=== PATIENT | male | born 1945 | race Caucasian/White ===

== ENCOUNTER 2016-12-31 14:42 | Inpatient (IN) | payer MEDICARE ==
[~2016-12-31] VITALS: Ht 170.2 cm; Wt 68.6 kg
[2016-12-31 14:43] VITALS: BP 174/90; PULSE 121; RESP 16; TEMP 97.9; O2SAT 98
[2016-12-31] MEDS ORDERED: IOHEXOL 350 MG/ML 10 ML VIAL (for RAD DIAG) IVCONTRAST ONE (14:43)
[2016-12-31] MEDS ORDERED: TAMS0.4C4 PO (15:03)
[2016-12-31] MEDS ORDERED: METF500T PO (15:03)
[2016-12-31 15:04] VITALS: BP 176/88; PULSE 119; RESP 19; TEMP 98.3; O2SAT 98
[2016-12-31] MEDS ORDERED: SODIUM CHLOR 0.9% 1000 ML INJ 1,000 ML IV SCH ×2 (15:08)
[2016-12-31] MEDS ORDERED: VANCOMYCIN INJ 1,000 MG in SODIUM CHLOR 0.9% 250 ML INJ 250 ML IV ONE (15:15)
[2016-12-31] MEDS ORDERED: PIPERACIL-TAZO 3.375 GM PREMIX 50 ML IV ONE (15:15)
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
[2016-12-31 15:27] VITALS: BP 173/89; PULSE 110; RESP 19; TEMP 98.3; O2SAT 98
[2016-12-31 16:06] LABS: AUTOMATED NEUTROPHIL # 29.3 TH/MM3 (1.8-7.7); BASOPHIL % 0.1 % (0.0-2.0); EOSINOPHIL % 0.1 % (0.0-4.0); LYMPH % 3.6 % (9.0-44.0); LYMPHOCYTE # 1.1 TH/MM3 (1.0-4.8); MEAN CELL VOLUME 94.8 FL (80.0-100.0); MEAN CORPUSCULAR HEMOGLOBIN 32.8 PG (27.0-34.0); MEAN CORPUSCULAR HGB CONC 34.6 % (32.0-36.0); MONO % 5.1 % (0.0-8.0); NEUT % 91.1 % (16.0-70.0); PLATELET COUNT 441 TH/MM3 (150-450); RED BLOOD COUNT 4.75 MIL/MM3 (4.50-5.90); RED CELL DISTRIBUTION WIDTH 12.7 % (11.6-17.2); WHITE BLOOD COUNT 32.2 TH/MM3 (4.0-11.0)
[2016-12-31 16:06] LABS: BLOOD, URINE NEG (NEG); GLUCOSE,URINE 1000 mg/dL (NEG); KETONE, URINE 80 mg/dL (NEG); NITRITE,URINE NEG (NEG); PH, URINE 5.5 (5.0-8.5); URINE COLOR YELLOW (YELLW/STRAW)
--- NOTE | 2016-12-31 16:14 | RADRPT ---
EXAM DATE/TIME: 12/31/2016 15:40 [facility] COMPARISON: No previous studies available for comparison. INDICATIONS : Cough, increased weakness. MEDICAL HISTORY : Diabetes mellitus type II. SURGICAL HISTORY : None. ENCOUNTER: Initial ACUITY: 2 months PAIN SCORE: 0/10 LOCATION: Bilateral chest FINDINGS: A single view of the chest demonstrates the lungs to be symmetrically aerated without evidence of mas s, infiltrate or effusion. The cardiomediastinal contours are unremarkable. Osseous structures are intact. CONCLUSION: 1. No acute cardiopulmonary findings. Pepe Ochoa MD on December 31, 2016 at 16:12 Board Certified Radiologist. This report was verified electronically.
[2016-12-31 16:15] LABS: COMMENT (UR) CATH-CULTURE IND; CULTURE IF INDICATED CATH CULTURE IND
[2016-12-31 16:18] LABS: HEMO FLAGS AUTO DIFF
[2016-12-31 17:05] LABS: ANION GAP 13 MEQ/L (5-15)
[2016-12-31 17:12] LABS: ALKALINE PHOSPHATASE 171 U/L (45-117); ALT (GPT) 35 U/L (12-78); AST (GOT) 21 U/L (15-37); BETA-HYDROXYBUTYRATE 2.81 MMOL/L (0.00-0.39); BLOOD UREA NITROGEN 17 MG/DL (7-18); CHLORIDE 95 MEQ/L (98-107); CREATINE KINASE 56 U/L (39-308); GLOMERULAR FILTRATION RATE 77 ML/MIN (>89); MAGNESIUM 2.4 MG/DL (1.5-2.5); POTASSIUM 3.4 MEQ/L (3.5-5.1); SODIUM (NA) 131 MEQ/L (136-145); TOTAL BILIRUBIN ADULT 0.7 MG/DL (0.2-1.0)
[2016-12-31] MEDS ORDERED: INSULIN HUMAN REGULAR 1,000 UNITS/10 ML VIAL IV PUSH ONE (17:45)
[2016-12-31] MEDS ORDERED: POTASSIUM CHLORIDE 20 MEQ CONTROLLED RELEASE TAB PO ONE (17:45)
[2016-12-31 17:53] LABS: BANDS 13 % (0-6); MYELOCYTES 2 % (0-0); NEUTROPHIL # MANUAL DIFF 28.7 TH/MM3 (1.8-7.7); PLATELET ESTIMATE SMEAR NORMAL (NORMAL); POLYS (SEG NEUTROPHILS) 74 % (16-70); SCAN/DIFF FINAL DIFF MANUAL; WBC DIFF SAMPLE 100
[2016-12-31] MEDS: METFORMIN HOLD POST IV CONTRAST SCH (17:55)
[2016-12-31 18:08] LABS: PLATELET MORPHOLOGY NORMAL (NORMAL)
--- NOTE | 2016-12-31 18:21 | RADRPT ---
EXAM DATE/TIME: 12/31/2016 17:58 [facility] COMPARISON: No previous studies available for comparison. INDICATIONS : Posterior draining abscess on neck. IV CONTRAST: 72 cc Omnipaque 350 (iohexol) IV RADIATION DOSE: 12.84 CTDIvol (mGy) MEDICAL HISTORY : Diabetes mellitus type 2. SURGICAL HISTORY : None. ENCOUNTER: Initial ACUITY: 1 week PAIN SCALE: 7/10 LOCATION: posterior left side neck region. TECHNIQUE: Volumetric scanning of the neck was performed. Using automated exposure control and adjustment of th e mA and/or kV according to patient size, radiation dose was kept as low as reasonably achievable to obtain optimal diagnostic quality images. DICOM format image data is available electronically for r eview and comparison. FINDINGS: Area of skin, subcutaneous and muscular edema seen of the posterior neck and occiput. This is a broad region of involvement but the epicenter appears to be left of midline at the craniocervical junction region. Multiple areas of blistering of the overlying scanner demonstrated. There is no distinct, me asurable or drainable fluid collection. Visualized osseous structures are intact. The visualized lung apices are clear. CONCLUSION: Broad area of cellulitis of the occiput and posterior neck without a perceptible abscess. Deny Kendall MD on December 31, 2016 at 18:16 Board Certified Radiologist. This report was verified electronically.
[2016-12-31 18:59] VITALS: BP 160/92; PULSE 109; RESP 17; O2SAT 98
[2016-12-31] MEDS ORDERED: ACETAMINOPHEN/HYDROcodone 325 MG/5 MG TAB PO PRN (19:15)
[2016-12-31] MEDS ORDERED: SODIUM CHLORIDE 0.9% FLUSH 10 ML FLUSH IV FLUSH PRN (19:15)
[2016-12-31] MEDS ORDERED: DEXTROSE 50% IN WATER 50 ML VIAL(D50) IV PRN (19:15)
[2016-12-31] MEDS ORDERED: ACETAMINOPHEN 325 MG TAB PO PRN (19:15)
[2016-12-31] MEDS ORDERED: GLUCAGON 1 MG/ML VIAL OTHER PRN (19:15)
[2016-12-31] MEDS ORDERED: NALOXONE HCL 0.4 MG/ML AMP IV PUSH PRN (19:15)
[2016-12-31] MEDS ORDERED: Vancomycin Consult Pharmacy 1 EA OTHER SCH (19:15)
[2016-12-31] MEDS ORDERED: ONDANSETRON HCL 4 MG/2 ML VIAL IVP PRN (19:15)
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
[2016-12-31 19:55] VITALS: BP 160/80; PULSE 108; RESP 16; O2SAT 98
[2016-12-31] MEDS: SODIUM CHLOR 0.9% 1000 ML INJ 1,000 ML IV SCH (20:11)
[2016-12-31] MEDS: VANCOMYCIN 1,000 MG/NS 250 ML IV SCH ×4 (20:11→21:32)
[2016-12-31] MEDS: SODIUM CHLORIDE 0.9% FLUSH 10 ML FLUSH IV FLUSH SCH (20:12)
[2016-12-31] MEDS: ENOXAPARIN SODIUM 40 MG/0.4 ML SYRINGE SQ SCH (20:12)
--- NOTE | 2016-12-31 20:56 | EKG ---
Date Performed: 12/31/2016 Time Performed: 15:12:15 PTAGE: 71 years EKG: SINUS TACHYCARDIA ABNORMAL RHYTHM ECG NO PREVIOUS TRACING DOCTOR: Cyrus Weaver Interpretating Date/Time 12/31/2016 20:54:37
[2016-12-31] MEDS ORDERED: KETOROLAC TROMETHAMINE 30 MG/ML (IVP) VIAL IV PUSH PRN (21:30)
[2016-12-31] MEDS: TAMSULOSIN HCL 0.4 MG CAP PO SCH (21:31)
[2016-12-31] MEDS: INSULIN ASPART SUPPLEMENTAL SCALE SQ SCH (21:31)
[2016-12-31] MEDS: DOCUSATE SODIUM 50 MG/SENNA 8.6 MG TAB PO SCH (21:32)
[2016-12-31 21:45] VITALS: BP 160/82; PULSE 104; RESP 17; TEMP 101; O2SAT 98
[2016-12-31] MEDS: ACETAMINOPHEN/HYDROcodone 325 MG/10 MG TAB PO PRN (21:49)
[2016-12-31] MEDS: PIPERACIL-TAZO 3.375 GM PREMIX 50 ML IV SCH (23:43)
[2017-01-01] VITALS: BP 128/65; PULSE 93; RESP 18; TEMP 98.2; O2SAT 92
[2017-01-01] MEDS ORDERED: VANCOMYCIN INJ 1,000 MG in SODIUM CHLOR 0.9% 250 ML INJ 250 ML IV SCH (03:00)
[2017-01-01 04:00] VITALS: BP 144/70; PULSE 88; RESP 18; TEMP 97; O2SAT 97
[2017-01-01] MEDS: PIPERACIL-TAZO 3.375 GM PREMIX 50 ML IV SCH ×3 (06:20→23:39)
[2017-01-01] MEDS: SODIUM CHLOR 0.9% 1000 ML INJ 1,000 ML IV SCH ×2 (06:20→15:02)
[2017-01-01] MEDS: INSULIN ASPART SUPPLEMENTAL SCALE SQ SCH ×4 (08:00→21:56)
[2017-01-01 08:03] VITALS: BP 161/76; PULSE 91; RESP 18; TEMP 98.3; O2SAT 99
[2017-01-01] MEDS: SODIUM CHLORIDE 0.9% FLUSH 10 ML FLUSH IV FLUSH SCH ×2 (10:47→21:56)
[2017-01-01] MEDS: DOCUSATE SODIUM 50 MG/SENNA 8.6 MG TAB PO SCH ×2 (10:47→21:56)
[2017-01-01] MEDS: LACTOBACILLUS ACIDOPHILUS TAB PO SCH ×3 (10:47→17:19)
--- NOTE | 2017-01-01 10:51 | HHI.PR ---
Subjective Remarks Patient reports feeling better. Posterior neck is slightly improved today. Last fever was at 9:45 PM last night. Sepsis criteria are no longer present. Objective Vital Signs Date Time Temp Pulse Resp B/P (MAP) Pulse Ox O2 Delivery O2 Flow Rate FiO2 01/01/17 08:03 98.3 91 18 161/76 (104) 99 01/01/17 04:00 97.0 88 18 144/70 (94) 97 01/01/17 00:00 98.2 93 18 128/65 (86) 92 12/31/16 22:49 18 12/31/16 22:49 18 12/31/16 21:45 101.0 104 17 160/82 (108) 98 12/31/16 20:12 12/31/16 19:55 108 16 160/80 (106) 98 Room Air 12/31/16 18:59 109 17 160/92 (114) 98 Room Air 12/31/16 15:27 98.3 110 19 173/89 (117) 98 Room Air 12/31/16 15:27 98 Room Air 12/31/16 15:04 119 19 98 Room Air 12/31/16 15:04 98.3 119 19 176/88 (117) 98 Room Air 12/31/16 14:43 97.9 121 16 174/90 (118) 98 Room Air I/O 12/31/16 12/31/16 12/31/16 01/01/17 01/01/17 01/01/17 07:00 15:00 23:00 07:00 15:00 23:00 Intake Total 2950 ml 2584 ml Output Total 150 ml Balance 2800 ml 2584 ml Intake Oral 600 ml IV Total 2350 ml 2584 ml Output Urine Total 150 ml # Voids 6 # Bowel Movements 0 Result Diagram: 12/31/16 1515 12/31/16 1515 Objective Remarks GENERAL: NAD, A&Ox3 HEAD: Normocephalic. NECK: Supple, trachea midline. No lymphadenopathy. EYES: No scleral icterus. No injection or drainage. CARDIOVASCULAR: Regular rate and rhythm without murmurs, gallops, or rubs. RESPIRATORY: Breath sounds equal bilaterally. No accessory muscle use. GASTROINTESTINAL: Abdomen soft, non-tender, nondistended. MUSCULOSKELETAL: No cyanosis, or edema. SKIN: Warm and dry. Improving area of furuncles and carbuncles and cellulitis at posterior scalp from occipital is down to mid neck. NEURO: No focal neurological deficitis. A/P Problem List: (1) Failure to thrive in adult ICD Code: R62.7 - Adult failure to thrive Status: Acute (2) Sepsis ICD Code: A41.9 - Sepsis, unspecified organism Status: Acute (3) Hyperglycemia ICD Code: R73.9 - Hyperglycemia, unspecified Status: Acute (4) Cellulitis ICD Code: L03.90 - Cellulitis, unspecified Status: Acute (5) Urinary tract infection ICD Code: N39.0 - Urinary tract infection, site not specified Status: Acute Assessment and Plan Assessment and plan 71-year-old male admitted with sepsis secondary to cellulitis and UTI Sepsis Resolved Cellulitis Screen for abscess with CT shows no evidence of abscess Monitor for furuncles and carbuncles Vancomycin Probiotics Urinary tract infection Follow urine cultures Zosyn Diabetes mellitus type 2 Uncontrolled, but improving Follow blood sugars Insulin sliding scale Diabetic diet Benign prostatic hypertrophy Continue tamsulosin DVT prophylaxis Lovenox SCDs Problem Qualifiers (1) Sepsis: Qualified Codes: A41.9 - Sepsis, unspecified organism (2) Cellulitis: Qualified Codes: L03.221 - Cellulitis of neck (3) Urinary tract infection: Qualified Codes: N30.00 - Acute cystitis without hematuria Pepe Deleon MD Jan 01, 2017 10:51
[2017-01-01 11:27] LABS: BASOPHIL % 0.1 % (0.0-2.0); EOSINOPHIL # 0.1 TH/MM3 (0-0.4); EOSINOPHIL % 0.3 % (0.0-4.0); HEMATOCRIT 39.9 % (39.0-51.0); LYMPH % 2.8 % (9.0-44.0); LYMPHOCYTE # 0.8 TH/MM3 (1.0-4.8); MEAN CELL VOLUME 94.9 FL (80.0-100.0); MEAN CORPUSCULAR HEMOGLOBIN 32.6 PG (27.0-34.0); MEAN CORPUSCULAR HGB CONC 34.4 % (32.0-36.0); MONO % 4.8 % (0.0-8.0); PLATELET COUNT 395 TH/MM3 (150-450); RED BLOOD COUNT 4.21 MIL/MM3 (4.50-5.90); RED CELL DISTRIBUTION WIDTH 12.8 % (11.6-17.2); WHITE BLOOD COUNT 28.2 TH/MM3 (4.0-11.0)
[2017-01-01 11:37] LABS: HEMO FLAGS AUTO DIFF
[2017-01-01 12:05] LABS: ALKALINE PHOSPHATASE 113 U/L (45-117); ALT (GPT) 22 U/L (12-78); ANION GAP 11 MEQ/L (5-15); AST (GOT) 11 U/L (15-37); BICARBONATE 21.9 MEQ/L (21.0-32.0); BLOOD UREA NITROGEN 13 MG/DL (7-18); CHLORIDE 102 MEQ/L (98-107); GLOMERULAR FILTRATION RATE 106 ML/MIN (>89); POTASSIUM 3.6 MEQ/L (3.5-5.1); SODIUM (NA) 135 MEQ/L (136-145); TOTAL BILIRUBIN ADULT 0.6 MG/DL (0.2-1.0)
[2017-01-01 12:24] LABS: BANDS 22 % (0-6); MYELOCYTES 2 % (0-0); NEUTROPHIL # MANUAL DIFF 25.7 TH/MM3 (1.8-7.7); PLATELET ESTIMATE SMEAR NORMAL (NORMAL); PLATELET MORPHOLOGY NORMAL (NORMAL); POLYS (SEG NEUTROPHILS) 67 % (16-70); SCAN/DIFF FINAL DIFF MANUAL; WBC DIFF SAMPLE 100
[2017-01-01 12:25] LABS: BURR CELLS 1+ (NORMAL)
[2017-01-01 12:26] LABS: ACANTHOCYTES OCC (NORMAL)
[2017-01-01 12:38] VITALS: BP 161/76; PULSE 94; RESP 17; TEMP 98.1; O2SAT 99
[2017-01-01 16:00] VITALS: BP 124/77; PULSE 100; RESP 19; TEMP 98.3; O2SAT 99
[2017-01-01] MEDS: METFORMIN HOLD POST IV CONTRAST SCH (17:19)
[2017-01-01 20:00] VITALS: BP 152/70; PULSE 98; RESP 20; TEMP 98.5; O2SAT 98
[2017-01-01] MEDS: VANCOMYCIN 1,000 MG/NS 250 ML IV SCH ×2 (21:55)
[2017-01-01] MEDS: ENOXAPARIN SODIUM 40 MG/0.4 ML SYRINGE SQ SCH (21:55)
[2017-01-01] MEDS: TAMSULOSIN HCL 0.4 MG CAP PO SCH (21:56)
[2017-01-01] MEDS: ACETAMINOPHEN/HYDROcodone 325 MG/10 MG TAB PO PRN (21:57)
[2017-01-02] VITALS (10 sets, daily range): BP systolic 129–172; BP diastolic 63–93; PULSE 86–106; RESP 18–20; TEMP 97.7–99.3; O2SAT 95–97
[2017-01-02] MEDS: SODIUM CHLOR 0.9% 1000 ML INJ 1,000 ML IV SCH ×3 (01:31→21:02)
[2017-01-02] MEDS: ACETAMINOPHEN/HYDROcodone 325 MG/10 MG TAB PO PRN (06:00)
[2017-01-02] MEDS: PIPERACIL-TAZO 3.375 GM PREMIX 50 ML IV SCH ×3 (06:00→22:47)
[2017-01-02] MEDS ORDERED: PHARMACY ORDERED LAB ONE (07:45)
[2017-01-02] MEDS: VANCOMYCIN 1,000 MG/NS 250 ML IV SCH ×2 (07:58)
[2017-01-02] MEDS: DOCUSATE SODIUM 50 MG/SENNA 8.6 MG TAB PO SCH ×2 (08:00→20:13)
[2017-01-02] MEDS: LACTOBACILLUS ACIDOPHILUS TAB PO SCH ×3 (08:00→18:08)
[2017-01-02] MEDS: INSULIN ASPART SUPPLEMENTAL SCALE SQ SCH ×4 (08:00→20:26)
[2017-01-02] MEDS: SODIUM CHLORIDE 0.9% FLUSH 10 ML FLUSH IV FLUSH SCH ×2 (08:00→20:13)
--- NOTE | 2017-01-02 11:24 | HHI.PR ---
Subjective Remarks Labs pending for today. Patient reports that he is feeling better. Nurse reports that he is not eating well. No fevers. Objective Vital Signs Date Time Temp Pulse Resp B/P (MAP) Pulse Ox O2 Delivery O2 Flow Rate FiO2 01/02/17 08:10 98.7 86 18 136/66 (89) 97 01/02/17 08:00 89 01/02/17 04:00 98.1 86 20 138/93 (108) 96 01/02/17 02:06 106 01/02/17 00:00 99.3 97 20 136/63 (87) 95 01/01/17 22:57 18 01/01/17 20:00 98.5 98 20 152/70 (97) 98 01/01/17 16:00 98.3 100 19 124/77 (93) 99 01/01/17 12:38 98.1 94 17 161/76 (104) 99 I/O 01/01/17 01/01/17 01/01/17 01/02/17 01/02/17 01/02/17 06:59 14:59 22:59 06:59 14:59 22:59 Intake Total 2584 ml 480 ml 240 ml 1420 ml Output Total 100 ml Balance 2584 ml 480 ml 240 ml 1320 ml Intake Oral 480 ml 240 ml 120 ml IV Total 2584 ml 1300 ml Output Urine Total 100 ml # Voids 6 5 1 2 Result Diagram: 01/01/17 1018 01/01/17 1018 Objective Remarks GENERAL: NAD, A&Ox3 HEAD: Normocephalic. NECK: Supple, trachea midline. No lymphadenopathy. EYES: No scleral icterus. No injection or drainage. CARDIOVASCULAR: Regular rate and rhythm without murmurs, gallops, or rubs. RESPIRATORY: Breath sounds equal bilaterally. No accessory muscle use. GASTROINTESTINAL: Abdomen soft, non-tender, nondistended. MUSCULOSKELETAL: No cyanosis, or edema. SKIN: Warm and dry. Improving area of furuncles and carbuncles and cellulitis at posterior scalp from occipital is down to mid neck. NEURO: No focal neurological deficitis. A/P Problem List: (1) Failure to thrive in adult ICD Code: R62.7 - Adult failure to thrive Status: Acute (2) Sepsis ICD Code: A41.9 - Sepsis, unspecified organism Status: Acute (3) Hyperglycemia ICD Code: R73.9 - Hyperglycemia, unspecified Status: Acute (4) Cellulitis ICD Code: L03.90 - Cellulitis, unspecified Status: Acute (5) Urinary tract infection ICD Code: N39.0 - Urinary tract infection, site not specified Status: Acute Assessment and Plan Assessment and plan 71-year-old male admitted with sepsis secondary to cellulitis and UTI. Possible bacteremia based on cultures. If bacteremia becomes more evident we' ll consult infectious disease physician. Continue present treatments for now. Follow CBC and BMP. Labs reviewed. Labs ordered. Sepsis Resolved Cellulitis Screen for abscess with CT shows no evidence of abscess Monitor for furuncles and carbuncles Vancomycin Probiotics Urinary tract infection Follow urine cultures Zosyn Diabetes mellitus type 2 Uncontrolled, but improving Follow blood sugars Insulin sliding scale Diabetic diet Benign prostatic hypertrophy Continue tamsulosin DVT prophylaxis Lovenox SCDs Problem Qualifiers (1) Sepsis: Qualified Codes: A41.9 - Sepsis, unspecified organism (2) Cellulitis: Qualified Codes: L03.221 - Cellulitis of neck (3) Urinary tract infection: Qualified Codes: N30.00 - Acute cystitis without hematuria Pepe Deleon MD Jan 02, 2017 11:24
[2017-01-02] MEDS: TAMSULOSIN HCL 0.4 MG CAP PO SCH (20:13)
[2017-01-02] MEDS: ENOXAPARIN SODIUM 40 MG/0.4 ML SYRINGE SQ SCH (20:13)
[2017-01-02] MEDS: VANCOMYCIN INJ 1,250 MG in SODIUM CHLOR 0.9% 250 ML INJ 250 ML IV SCH (20:26)
[2017-01-03 04:35] VITALS: BP 130/60; PULSE 87; RESP 16; TEMP 99; O2SAT 95
[2017-01-03] MEDS: PIPERACIL-TAZO 3.375 GM PREMIX 50 ML IV SCH (06:20)
[2017-01-03] MEDS: SODIUM CHLOR 0.9% 1000 ML INJ 1,000 ML IV SCH ×2 (06:20→17:34)
[2017-01-03 08:00] VITALS: BP 149/70; PULSE 83; RESP 20; TEMP 97.8; O2SAT 96
[2017-01-03 08:19] LABS: HEMATOCRIT 36.4 % (39.0-51.0); MEAN CELL VOLUME 93.7 FL (80.0-100.0); MEAN CORPUSCULAR HEMOGLOBIN 32.4 PG (27.0-34.0); MEAN CORPUSCULAR HGB CONC 34.6 % (32.0-36.0); PLATELET COUNT 396 TH/MM3 (150-450); RED BLOOD COUNT 3.88 MIL/MM3 (4.50-5.90); RED CELL DISTRIBUTION WIDTH 12.6 % (11.6-17.2); WHITE BLOOD COUNT 19.2 TH/MM3 (4.0-11.0)
[2017-01-03 08:22] LABS: HEMO FLAGS AUTO DIFF
[2017-01-03] MEDS: DOCUSATE SODIUM 50 MG/SENNA 8.6 MG TAB PO SCH ×2 (08:29→20:40)
[2017-01-03] MEDS: LACTOBACILLUS ACIDOPHILUS TAB PO SCH ×3 (08:29→17:26)
[2017-01-03] MEDS: VANCOMYCIN INJ 1,250 MG in SODIUM CHLOR 0.9% 250 ML INJ 250 ML IV SCH (08:29)
[2017-01-03] MEDS: INSULIN ASPART SUPPLEMENTAL SCALE SQ SCH ×4 (08:41→20:40)
[2017-01-03] MEDS: SODIUM CHLORIDE 0.9% FLUSH 10 ML FLUSH IV FLUSH SCH ×2 (08:42→20:40)
[2017-01-03 08:48] LABS: ALKALINE PHOSPHATASE 79 U/L (45-117); ALT (GPT) 13 U/L (12-78); ANION GAP 9 MEQ/L (5-15); AST (GOT) 9 U/L (15-37); BICARBONATE 23.6 MEQ/L (21.0-32.0); BLOOD UREA NITROGEN 8 MG/DL (7-18); CHLORIDE 104 MEQ/L (98-107); GLOMERULAR FILTRATION RATE 172 ML/MIN (>89); SODIUM (NA) 137 MEQ/L (136-145); TOTAL BILIRUBIN ADULT 0.6 MG/DL (0.2-1.0)
[2017-01-03 08:52] LABS: BANDS 15 % (0-6); MYELOCYTES 3 % (0-0); NEUTROPHIL # MANUAL DIFF 16.3 TH/MM3 (1.8-7.7); POLYS (SEG NEUTROPHILS) 67 % (16-70); WBC DIFF SAMPLE 100
[2017-01-03 08:53] LABS: ACANTHOCYTES 1+ (NORMAL); PLATELET ESTIMATE SMEAR NORMAL (NORMAL); PLATELET MORPHOLOGY NORMAL (NORMAL); SCAN/DIFF FINAL DIFF MANUAL
[2017-01-03 08:54] LABS: OVALOCYTES 1+ (NORMAL)
[2017-01-03 10:00] VITALS: PULSE 92
[2017-01-03 12:00] VITALS: BP 159/87; PULSE 88; RESP 20; TEMP 97.2; O2SAT 96
--- NOTE | 2017-01-03 12:17 | HHI.PR ---
Subjective Remarks Continued improvement in wound. Culture showed more evidence of positivity regarding bacteremia. No new complaints from the patient. Objective Vital Signs Date Time Temp Pulse Resp B/P (MAP) Pulse Ox O2 Delivery O2 Flow Rate FiO2 01/03/17 12:00 97.2 88 20 159/87 (111) 96 01/03/17 08:00 97.8 83 20 149/70 (96) 96 01/03/17 04:35 99.0 87 16 130/60 (83) 95 01/02/17 23:43 99.2 90 18 129/75 (93) 96 01/02/17 20:32 86 01/02/17 20:14 97.9 104 18 172/88 (116) 96 01/02/17 16:00 98.2 99 20 171/90 (117) 96 01/02/17 12:52 97.7 94 18 149/81 (103) 97 I/O 01/02/17 01/02/17 01/02/17 01/03/17 01/03/17 01/03/17 07:00 15:00 23:00 07:00 15:00 23:00 Intake Total 1420 ml 730 ml Output Total 100 ml Balance 1320 ml 730 ml Intake Oral 120 ml 480 ml IV Total 1300 ml 250 ml Output Urine Total 100 ml # Voids 2 9 1 Result Diagram: 01/03/1771601/03/17 07 Objective Remarks GENERAL: NAD, A&Ox3 HEAD: Normocephalic. NECK: Supple, trachea midline. No lymphadenopathy. EYES: No scleral icterus. No injection or drainage. CARDIOVASCULAR: Regular rate and rhythm without murmurs, gallops, or rubs. RESPIRATORY: Breath sounds equal bilaterally. No accessory muscle use. GASTROINTESTINAL: Abdomen soft, non-tender, nondistended. MUSCULOSKELETAL: No cyanosis, or edema. SKIN: Warm and dry. Improving area of furuncles and carbuncles and cellulitis at posterior scalp from occipital is down to mid neck. NEURO: No focal neurological deficitis. A/P Problem List: (1) Failure to thrive in adult ICD Code: R62.7 - Adult failure to thrive Status: Acute (2) Sepsis ICD Code: A41.9 - Sepsis, unspecified organism Status: Acute (3) Hyperglycemia ICD Code: R73.9 - Hyperglycemia, unspecified Status: Acute (4) Cellulitis ICD Code: L03.90 - Cellulitis, unspecified Status: Acute (5) Urinary tract infection ICD Code: N39.0 - Urinary tract infection, site not specified Status: Acute Assessment and Plan Assessment and plan 71-year-old male admitted with sepsis secondary to cellulitis and UTI. Further evidence of bacteremia. Continue present treatment. Consult infectious disease. The wound is improving with antibiotics through time. Sepsis Resolved Cellulitis Screen for abscess with CT shows no evidence of abscess Monitor for furuncles and carbuncles Vancomycin Probiotics Urinary tract infection Follow urine cultures Zosyn Diabetes mellitus type 2 Uncontrolled, but improving Follow blood sugars Insulin sliding scale Diabetic diet Benign prostatic hypertrophy Continue tamsulosin DVT prophylaxis Lovenox SCDs Problem Qualifiers (1) Sepsis: Qualified Codes: A41.9 - Sepsis, unspecified organism (2) Cellulitis: Qualified Codes: L03.221 - Cellulitis of neck (3) Urinary tract infection: Qualified Codes: N30.00 - Acute cystitis without hematuria Pepe Deleon MD Jan 03, 2017 12:17
[2017-01-03] MEDS: ceFAZolin 2 GM PREMIX 50 ML IV SCH ×2 (15:36→23:58)
[2017-01-03 16:00] VITALS: BP 152/78; PULSE 81; RESP 20; TEMP 98.2; O2SAT 97
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
[2017-01-03 20:00] VITALS: BP 153/75; PULSE 88; RESP 18; TEMP 98.2; O2SAT 94
[2017-01-03] MEDS: TAMSULOSIN HCL 0.4 MG CAP PO SCH (20:40)
[2017-01-03] MEDS: ENOXAPARIN SODIUM 40 MG/0.4 ML SYRINGE SQ SCH (20:40)
[2017-01-04] VITALS: BP 147/74; PULSE 82; RESP 18; TEMP 98; O2SAT 95
[2017-01-04 04:00] VITALS: BP 155/75; PULSE 89; RESP 18; TEMP 98.9; O2SAT 94
[2017-01-04] MEDS: SODIUM CHLOR 0.9% 1000 ML INJ 1,000 ML IV SCH ×3 (04:22→23:02)
[2017-01-04] MEDS: ceFAZolin 2 GM PREMIX 50 ML IV SCH ×3 (06:40→22:15)
[2017-01-04] MEDS ORDERED: PHARMACY ORDERED LAB ONE (07:45)
[2017-01-04 08:00] VITALS: BP 153/72; PULSE 85; RESP 20; TEMP 98.3; O2SAT 96
[2017-01-04] MEDS: LACTOBACILLUS ACIDOPHILUS TAB PO SCH ×3 (08:04→18:25)
[2017-01-04] MEDS: DOCUSATE SODIUM 50 MG/SENNA 8.6 MG TAB PO SCH ×2 (08:05→22:15)
[2017-01-04] MEDS: INSULIN ASPART SUPPLEMENTAL SCALE SQ SCH ×4 (08:11→22:16)
[2017-01-04] MEDS: SODIUM CHLORIDE 0.9% FLUSH 10 ML FLUSH IV FLUSH SCH ×2 (08:13→21:00)
--- NOTE | 2017-01-04 11:13 | HHI.PR ---
Subjective Remarks Slow improvement continues at posterior scalp infection. Vancomycin and Zosyn and transitioned to cefazolin. Patient has no new complaints. Objective Vital Signs Date Time Temp Pulse Resp B/P (MAP) Pulse Ox O2 Delivery O2 Flow Rate FiO2 01/04/17 08:00 98.3 85 20 153/72 (99) 96 01/04/17 04:00 98.9 89 18 155/75 (101) 94 01/04/17 00:00 98.0 82 18 147/74 (98) 95 01/03/17 20:00 98.2 88 18 153/75 (101) 94 01/03/17 16:00 98.2 81 20 152/78 (102) 97 01/03/17 12:00 97.2 88 20 159/87 (111) 96 I/O 01/03/17 01/03/17 01/03/17 01/04/17 01/04/17 01/04/17 07:00 15:00 23:00 07:00 15:00 23:00 Intake Total 780 ml Balance 780 ml Intake Oral 480 ml IV Total 300 ml # Voids 1 3 2 # Bowel Movements 1 Result Diagram: 01/03/1771601/03/1717 Objective Remarks GENERAL: NAD, A&Ox3 HEAD: Normocephalic. NECK: Supple, trachea midline. No lymphadenopathy. EYES: No scleral icterus. No injection or drainage. CARDIOVASCULAR: Regular rate and rhythm without murmurs, gallops, or rubs. RESPIRATORY: Breath sounds equal bilaterally. No accessory muscle use. GASTROINTESTINAL: Abdomen soft, non-tender, nondistended. MUSCULOSKELETAL: No cyanosis, or edema. SKIN: Warm and dry. Improving area of furuncles and carbuncles and cellulitis at posterior scalp from occipital is down to mid neck. NEURO: No focal neurological deficitis. A/P Problem List: (1) Failure to thrive in adult ICD Code: R62.7 - Adult failure to thrive Status: Acute (2) Sepsis ICD Code: A41.9 - Sepsis, unspecified organism Status: Acute (3) Hyperglycemia ICD Code: R73.9 - Hyperglycemia, unspecified Status: Acute (4) Cellulitis ICD Code: L03.90 - Cellulitis, unspecified Status: Acute (5) Urinary tract infection ICD Code: N39.0 - Urinary tract infection, site not specified Status: Acute Assessment and Plan Assessment and plan 71-year-old male admitted with sepsis secondary to cellulitis and UTI. Further evidence of bacteremia. Continue present treatment. Consult infectious disease. The wound is improving with antibiotics through time. Sepsis Resolved Cellulitis Screen for abscess with CT shows no evidence of abscess Monitor for furuncles and carbuncles Vancomycin stopped Continue cefazolin Probiotics Urinary tract infection Follow urine cultures Zosyn stopped Continue cefazolin Diabetes mellitus type 2 Uncontrolled, but improving Follow blood sugars Insulin sliding scale Diabetic diet Benign prostatic hypertrophy Continue tamsulosin DVT prophylaxis Lovenox SCDs Discharge planning Pending cultures Patient lives in [place] Patient may benefit from home health monitoring once discharged Problem Qualifiers (1) Sepsis: Qualified Codes: A41.9 - Sepsis, unspecified organism (2) Cellulitis: Qualified Codes: L03.221 - Cellulitis of neck (3) Urinary tract infection: Qualified Codes: N30.00 - Acute cystitis without hematuria Pepe Deleon MD Jan 04, 2017 11:13
[2017-01-04 12:00] VITALS: BP 162/77; PULSE 80; RESP 20; TEMP 98.2; O2SAT 98
--- NOTE | 2017-01-04 14:25 | HHI.IDPN ---
Note Infectious Disease Note Patient says he feels better. Appears somnolent. Afebrile. Still with significant redness at the posterior scalp. (+) drainage. Admitted 12/31 with generalized weakness. PAST MEDICAL HISTORY 1. Diabetes mellitus. 2. Benign prostatic hypertrophy. 3. Hernia repair at age 17. ALLERGIES NO KNOWN DRUG ALLERGIES. ANTIBIOTICS: Ancef. OBJECTIVE: Vital Signs Date Time Temp Pulse Resp B/P (MAP) Pulse Ox O2 Delivery O2 Flow Rate FiO2 01/04/17 12:00 98.2 80 20 162/77 (105) 98 01/04/17 08:00 98.3 85 20 153/72 (99) 96 01/04/17 04:00 98.9 89 18 155/75 (101) 94 01/04/17 00:00 98.0 82 18 147/74 (98) 95 01/03/17 20:00 98.2 88 18 153/75 (101) 94 01/03/17 16:00 98.2 81 20 152/78 (102) 97 Laboratory Tests Test 01/03/17 07:17 White Blood Count 19.2 TH/MM3 Red Blood Count 3.88 MIL/MM3 Hemoglobin 12.6 GM/DL Hematocrit 36.4 % Mean Corpuscular Volume 93.7 FL Mean Corpuscular Hemoglobin 32.4 PG Mean Corpuscular Hemoglobin Concent 34.6 % Red Cell Distribution Width 12.6 % Platelet Count 396 TH/MM3 Mean Platelet Volume 7.5 FL CBC Comment AUTO DIFF Differential Total Cells Counted 100 Neutrophils % (Manual) 67 % Band Neutrophils % 15 % Lymphocytes % 8 % Monocytes % 7 % Neutrophils # (Manual) 16.3 TH/MM3 Myelocytes 3 % Differential Comment FINAL DIFF MANUAL Platelet Estimate NORMAL Platelet Morphology Comment NORMAL Ovalocytes 1+ Acanthocytes 1+ Laboratory Tests Test 01/03/17 07:17 Blood Urea Nitrogen 8 MG/DL Creatinine 0.48 MG/DL Random Glucose 167 MG/DL Total Protein 5.1 GM/DL Albumin 1.7 GM/DL Calcium Level 7.8 MG/DL Alkaline Phosphatase 79 U/L Aspartate Amino Transf (AST/SGOT) 9 U/L Alanine Aminotransferase (ALT/SGPT) 13 U/L Total Bilirubin 0.6 MG/DL Sodium Level 137 MEQ/L Potassium Level 3.0 MEQ/L Chloride Level 104 MEQ/L Carbon Dioxide Level 23.6 MEQ/L Anion Gap 9 MEQ/L Estimat Glomerular Filtration Rate 172 ML/MIN Microbiology Date/Time Source Procedure Growth Status 01/03/17 12:48 Blood Peripheral Aerobic Blood Culture - Preliminary NO GROWTH IN 1 DAY Resulted 01/03/17 12:48 Blood Peripheral Anaerobic Blood Culture - Preliminary NO GROWTH IN 1 DAY Resulted PHYSICAL EXAMINATION GENERAL: No acute distress. HEENT: Erythema at the posterior aspect of the head. There is creamy white drainage coming from several places underneath the scalp at the posterior aspect of the head. The erythema extends to the base of the scalp at the neck posteriorly there is some induration. NECK: Supple without adenopathy. LUNGS: Clear breath sounds. HEART: Regular rate and rhythm. No murmurs. No rubs. No gallops. ABDOMEN: Bowel sounds present, soft. No tenderness. EXTREMITIES: No clubbing, cyanosis or edema. SKIN: No rash. NEUROLOGICAL: No gross focal findings. The patient is however, somnolent. PSYCHIATRIC: The patient is calm and cooperative. IMPRESSION 1. Bacteremia - staph aureus arising from cellulitis of the posterior aspect of the head. 2. Cellulitis/abscess involving the posterior aspect of head 3. Diabetes mellitus. 4. The cellulitis of the scalp appears severe at this point. The patient has generalized malaise as a result of the infection. RECOMMENDATIONS 1. Continue cefazolin. 2. Plastic surgery consult for abscess drainage. 3. Monitor repeat blood cultures. 4. Monitor the patient's clinical status. 5. Monitor white blood cell count. 6. Wet to dry dressing to scalp. Chava Mosley MD Jan 04, 2017 14:24
[2017-01-04 16:00] VITALS: BP 172/76; PULSE 77; RESP 20; TEMP 98; O2SAT 98
[2017-01-04 20:30] VITALS: BP 182/84; PULSE 80; RESP 18; TEMP 98.6; O2SAT 95
[2017-01-04] MEDS: TAMSULOSIN HCL 0.4 MG CAP PO SCH (22:15)
[2017-01-04] MEDS: ENALAPRILAT 2.5 MG/2 ML VIAL IV PUSH PRN (22:15)
[2017-01-04] MEDS: ENOXAPARIN SODIUM 40 MG/0.4 ML SYRINGE SQ SCH (22:16)
[2017-01-05] VITALS: BP 143/79; PULSE 77; RESP 18; TEMP 98.4; O2SAT 95
[2017-01-05 04:00] VITALS: BP 153/80; PULSE 77; RESP 24; TEMP 97.5; O2SAT 96
[2017-01-05] MEDS: ceFAZolin 2 GM PREMIX 50 ML IV SCH ×2 (05:38→15:27)
--- NOTE | 2017-01-05 07:03 | MB ---
cc: HSAMA BASURTO M.D. DATE OF CONSULTATION 01/04/2017 REASON FOR CONSULTATION Posterior scalp and neck area wounds. HISTORY A 71-year-old white male referred to me by the Infectious Disease specialist and medical team for evaluation of the scalp area cellulitis open wounds and possible abscess. The patient is diabetic on metformin. He came to the hospital with a complaint of pain and swelling of his scalp and neck a few days back. He has been in the hospital for approximately 4 or 5 days and has been placed on IV antibiotics. The wound is still actively draining. The swelling is still there, although the patient does feel better overall. He has been otherwise stabilized from a medical standpoint. The patient, when specifically asked about the onset of the swelling and the wounds, is not able to provide any answers. He denies having any injury to the area. No insect bites or falls or any hidradenitis type of condition. The patient also denies having skin boils on the torso or extremities. The patient is not having any fever or significant issues from the abscess at this time. PAST MEDICAL HISTORY 1. Record shows diabetes mellitus type 2. 2. Prostatic hypertrophy. PAST SURGICAL HISTORY Hernia repair. The patient does not have any artificial joints or metal in the body. No pacemaker or any other prosthesis. The patient denies any cardiac significant issues. CURRENT MEDICATIONS Listed include - 1. Tamsulosin. 2. Metformin. ALLERGIES None. SOCIAL HISTORY Negative for smoking, alcohol or drug abuse. The patient has never smoked. PHYSICAL EXAMINATION GENERAL: The examination shows a 71-year-old white male resting in surgical bed. He is able to move around easily at will, is comfortable. VITAL SIGNS: Within normal range. The general examination is as per the medical records. HEENT: The local examination of the posterior scalp and neck area shows what appears to be multiple areas of smaller cysts and openings, one slightly to the left of midline near the occipital scalp. His hair is completely matted with purulent discharge in the area. Upon palpation there is no gas formation in the tissue. The swelling is moderate. The only area of fluctuation is again the area of the larger wound. There does not seem to be any pus draining out of the smaller ones. Clinically consistent with a carbuncle type of abscess RECOMMENDATIONS The patient was explained debridement under general anesthesia in the operating room and treating the wounds open until they heal. The patient also needs to have all the hair removed in order to clean up the collected discharge and also provide a better visualization of the underlying wounds. A wound culture has already been done and being treated. The diabetes is also under control. The patient was advised that I can help him through the surgical debridement of the wound while he is in the hospital. After that he will need to be treated by a legal recovery specialist either at the [facility] or [facility] wound care in the area. The patient states that he is from [place]; he does not plan on staying here with his sister much longer. He may get his care through his primary care physician in the [place] area. The patient also was advised that I do not take any new patients in my private office and do not accept insurance. Regarding further care, he agrees to the surgical care that I can provide while he is in the hospital. I plan to do his surgery possibly tomorrow or early the next day. In the meantime, all the hair can be shaved from the top of his head and the patient can have a shower and wash it with soap and water to clean up as much as he can. signed, not fully reviewed MD SUSI Maxwell/JOSEPH /4:08 AM /6:41 AM RACHEL
[2017-01-05] MEDS ORDERED: POTASSIUM CHLORIDE 10 MEQ CONTROLLED RELEASE TAB PO ONE (08:30)
[2017-01-05 08:49] VITALS: BP 158/75; PULSE 71; RESP 20; TEMP 99; O2SAT 97
[2017-01-05] MEDS: SODIUM CHLORIDE 0.9% FLUSH 10 ML FLUSH IV FLUSH SCH ×2 (09:00→21:00)
[2017-01-05 09:48] LABS: AUTOMATED NEUTROPHIL # 12.6 TH/MM3 (1.8-7.7); BASOPHIL # 0.1 TH/MM3 (0-0.2); BASOPHIL % 0.4 % (0.0-2.0); EOSINOPHIL # 0.3 TH/MM3 (0-0.4); EOSINOPHIL % 1.9 % (0.0-4.0); LYMPH % 7.9 % (9.0-44.0); LYMPHOCYTE # 1.2 TH/MM3 (1.0-4.8); MEAN CELL VOLUME 92.8 FL (80.0-100.0); MEAN CORPUSCULAR HGB CONC 35.5 % (32.0-36.0); MONO % 6.4 % (0.0-8.0); NEUT % 83.4 % (16.0-70.0); PLATELET COUNT 439 TH/MM3 (150-450); RED BLOOD COUNT 3.98 MIL/MM3 (4.50-5.90); RED CELL DISTRIBUTION WIDTH 12.7 % (11.6-17.2); WHITE BLOOD COUNT 15.1 TH/MM3 (4.0-11.0)
[2017-01-05] MEDS: INSULIN ASPART SUPPLEMENTAL SCALE SQ SCH ×4 (10:00→21:00)
[2017-01-05] MEDS: LACTOBACILLUS ACIDOPHILUS TAB PO SCH ×3 (10:12→17:33)
[2017-01-05] MEDS: DOCUSATE SODIUM 50 MG/SENNA 8.6 MG TAB PO SCH ×2 (10:13→21:00)
[2017-01-05 10:15] LABS: HEMO FLAGS AUTO DIFF
--- NOTE | 2017-01-05 11:38 | HHI.PR ---
Subjective Remarks Patient tolerating treatment well thus far. Line for debridement surgery. This should occur this afternoon or tomorrow. Objective Vital Signs Date Time Temp Pulse Resp B/P (MAP) Pulse Ox O2 Delivery O2 Flow Rate FiO2 01/05/17 08:49 99.0 71 20 158/75 (102) 97 01/05/17 04:00 97.5 77 24 153/80 (104) 96 01/05/17 00:00 98.4 77 18 143/79 (100) 95 01/04/17 20:30 98.6 80 18 182/84 (116) 95 01/04/17 16:00 98.0 77 20 172/76 (108) 98 01/04/17 12:00 98.2 80 20 162/77 (105) 98 I/O 01/04/17 01/04/17 01/04/17 01/05/17 01/05/17 01/05/17 07:00 15:00 23:00 07:00 15:00 23:00 Intake Total 480 ml 240 ml Balance 480 ml 240 ml Intake Oral 480 ml 240 ml # Voids 2 1 5 # Bowel Movements 1 1 0 Result Diagram: 01/05/17 0900 01/03/17 0717 Objective Remarks GENERAL: NAD, A&Ox3 HEAD: Normocephalic. NECK: Supple, trachea midline. No lymphadenopathy. EYES: No scleral icterus. No injection or drainage. CARDIOVASCULAR: Regular rate and rhythm without murmurs, gallops, or rubs. RESPIRATORY: Breath sounds equal bilaterally. No accessory muscle use. GASTROINTESTINAL: Abdomen soft, non-tender, nondistended. MUSCULOSKELETAL: No cyanosis, or edema. SKIN: Warm and dry. Improving area of furuncles and carbuncles and cellulitis at posterior scalp from occipital is down to mid neck. NEURO: No focal neurological deficitis. A/P Problem List: (1) Failure to thrive in adult ICD Code: R62.7 - Adult failure to thrive Status: Acute (2) Sepsis ICD Code: A41.9 - Sepsis, unspecified organism Status: Acute (3) Hyperglycemia ICD Code: R73.9 - Hyperglycemia, unspecified Status: Acute (4) Cellulitis ICD Code: L03.90 - Cellulitis, unspecified Status: Acute (5) Urinary tract infection ICD Code: N39.0 - Urinary tract infection, site not specified Status: Acute Assessment and Plan Assessment and plan 71-year-old male admitted with sepsis secondary to cellulitis and UTI. Further evidence of bacteremia. Continue present treatment. Infectious disease and plastic surgery following. Plan for debridement. Sepsis Resolved Cellulitis Screen for abscess with CT shows no evidence of abscess Monitor for furuncles and carbuncles Vancomycin stopped Continue cefazolin Probiotics Urinary tract infection Follow urine cultures Zosyn stopped Continue cefazolin Diabetes mellitus type 2 Uncontrolled, but improving Follow blood sugars Insulin sliding scale Diabetic diet Benign prostatic hypertrophy Continue tamsulosin DVT prophylaxis Lovenox SCDs Discharge planning Pending cultures Patient lives in [place] Patient may benefit from home health monitoring once discharged Problem Qualifiers (1) Sepsis: Qualified Codes: A41.9 - Sepsis, unspecified organism (2) Cellulitis: Qualified Codes: L03.221 - Cellulitis of neck (3) Urinary tract infection: Qualified Codes: N30.00 - Acute cystitis without hematuria Pepe Deleon MD Jan 05, 2017 11:38
[2017-01-05 12:14] VITALS: BP 165/86; PULSE 78; RESP 20; TEMP 98; O2SAT 95
[2017-01-05 13:03] LABS: BANDS 11 % (0-6); BASOPHILS 1 % (0-2); MYELOCYTES 3 % (0-0); NEUTROPHIL # MANUAL DIFF 14.5 TH/MM3 (1.8-7.7); PLATELET ESTIMATE SMEAR NORMAL (NORMAL); PLATELET MORPHOLOGY NORMAL (NORMAL); POLYS (SEG NEUTROPHILS) 82 % (16-70); SCAN/DIFF FINAL DIFF MANUAL; WBC DIFF SAMPLE 100
[2017-01-05 16:24] VITALS: BP 188/93; PULSE 83; RESP 20; TEMP 97.8; O2SAT 98
--- NOTE | 2017-01-05 16:41 | HHI.IDPN ---
Note Infectious Disease Note Patient is more awake. Afebrile. Still with significant redness at the posterior scalp. (+) drainage. WBC still elevated. Plan for I&D per plastic surgery. Admitted 12/31 with generalized weakness. PAST MEDICAL HISTORY 1. Diabetes mellitus. 2. Benign prostatic hypertrophy. 3. Hernia repair at age 17. ALLERGIES NO KNOWN DRUG ALLERGIES. ANTIBIOTICS: Ancef. OBJECTIVE: Vital Signs Date Time Temp Pulse Resp B/P (MAP) Pulse Ox O2 Delivery O2 Flow Rate FiO2 01/05/17 16:24 97.8 83 20 188/93 (124) 98 01/05/17 12:14 98.0 78 20 165/86 (112) 95 01/05/17 08:49 99.0 71 20 158/75 (102) 97 01/05/17 04:00 97.5 77 24 153/80 (104) 96 01/05/17 00:00 98.4 77 18 143/79 (100) 95 01/04/17 20:30 98.6 80 18 182/84 (116) 95 Laboratory Tests Test 01/05/17 09:00 White Blood Count 15.1 TH/MM3 Red Blood Count 3.98 MIL/MM3 Hemoglobin 13.1 GM/DL Hematocrit 37.0 % Mean Corpuscular Volume 92.8 FL Mean Corpuscular Hemoglobin 33.0 PG Mean Corpuscular Hemoglobin Concent 35.5 % Red Cell Distribution Width 12.7 % Platelet Count 439 TH/MM3 Mean Platelet Volume 7.8 FL Neutrophils (%) (Auto) 83.4 % Lymphocytes (%) (Auto) 7.9 % Monocytes (%) (Auto) 6.4 % Eosinophils (%) (Auto) 1.9 % Basophils (%) (Auto) 0.4 % Neutrophils # (Auto) 12.6 TH/MM3 Lymphocytes # (Auto) 1.2 TH/MM3 Monocytes # (Auto) 1.0 TH/MM3 Eosinophils # (Auto) 0.3 TH/MM3 Basophils # (Auto) 0.1 TH/MM3 CBC Comment AUTO DIFF Differential Total Cells Counted 100 Neutrophils % (Manual) 82 % Band Neutrophils % 11 % Lymphocytes % 2 % Monocytes % 1 % Basophils % 1 % Neutrophils # (Manual) 14.5 TH/MM3 Myelocytes 3 % Differential Comment FINAL DIFF MANUAL Platelet Estimate NORMAL Platelet Morphology Comment NORMAL Red Cell Morphology Comment NORMAL Microbiology Date/Time Source Procedure Growth Status 01/03/17 12:48 Blood Peripheral Aerobic Blood Culture - Preliminary NO GROWTH IN 2 DAYS Resulted 01/03/17 12:48 Blood Peripheral Anaerobic Blood Culture - Preliminary NO GROWTH IN 2 DAYS Resulted PHYSICAL EXAMINATION GENERAL: No acute distress. HEENT: Erythema at the posterior aspect of the head. Creamy white drainage coming from several places at the scalp at the posterior aspect of the head. The erythema extends to the base of the scalp at the neck posteriorly there is some induration. NECK: Supple without adenopathy. LUNGS: Clear breath sounds. HEART: Regular rate and rhythm. No murmurs. No rubs. No gallops. ABDOMEN: Bowel sounds present, soft. No tenderness. EXTREMITIES: No clubbing, cyanosis or edema. SKIN: No rash. NEUROLOGICAL: No gross focal findings. Less somnolent. PSYCHIATRIC: Calm and cooperative. IMPRESSION 1. Bacteremia - staph aureus arising from cellulitis of the posterior aspect of the head. 2. Cellulitis/abscess involving the posterior aspect of head 3. Diabetes mellitus. RECOMMENDATIONS 1. Continue cefazolin. 2. Monitor repeat blood cultures. 3. Monitor the patient's clinical status. 4. Follow white blood cell count. 5. Wet to dry dressing to scalp. Chava Mosley MD Jan 05, 2017 16:41
[2017-01-05 20:00] VITALS: BP 155/74; PULSE 85; RESP 18; TEMP 98; O2SAT 98
[2017-01-05] MEDS: ENOXAPARIN SODIUM 40 MG/0.4 ML SYRINGE SQ SCH (20:00)
[2017-01-05] MEDS: TAMSULOSIN HCL 0.4 MG CAP PO SCH (21:29)
[2017-01-06] VITALS (7 sets, daily range): BP systolic 155–189; BP diastolic 79–94; PULSE 86–100; RESP 17–20; TEMP 97.5–98.2; O2SAT 95–98
[2017-01-06] MEDS: ceFAZolin 2 GM PREMIX 50 ML IV SCH ×4 (01:03→22:33)
[2017-01-06] MEDS: ENALAPRILAT 2.5 MG/2 ML VIAL IV PUSH PRN (01:40)
[2017-01-06] MEDS: SODIUM CHLOR 0.9% 1000 ML INJ 1,000 ML IV SCH ×2 (04:40→11:14)
[2017-01-06] MEDS: INSULIN ASPART SUPPLEMENTAL SCALE SQ SCH ×4 (08:00→21:00)
[2017-01-06] MEDS: DOCUSATE SODIUM 50 MG/SENNA 8.6 MG TAB PO SCH ×2 (09:00→22:33)
[2017-01-06] MEDS: SODIUM CHLORIDE 0.9% FLUSH 10 ML FLUSH IV FLUSH SCH ×2 (09:00→21:00)
[2017-01-06] MEDS: LACTOBACILLUS ACIDOPHILUS TAB PO SCH ×3 (09:00→17:18)
--- NOTE | 2017-01-06 09:44 | HHI.PR ---
Subjective Remarks Patient resting in bed in no acute distress Offers no specific complaints at this time Objective Vitals Vital Signs Date Time Temp Pulse Resp B/P (MAP) Pulse Ox O2 Delivery O2 Flow Rate FiO2 01/06/17 09:13 98.2 95 20 155/85 (108) 96 01/06/17 04:30 98.0 100 17 176/94 (121) 96 01/06/17 01:09 97.9 86 17 189/84 (119) 97 01/05/17 20:00 98.0 85 18 155/74 (101) 98 01/05/17 16:24 97.8 83 20 188/93 (124) 98 01/05/17 12:14 98.0 78 20 165/86 (112) 95 I/O 01/05/17 01/05/17 01/05/17 01/06/17 01/06/17 01/06/17 07:00 15:00 23:00 07:00 15:00 23:00 Intake Total 240 ml Balance 240 ml Intake Oral 240 ml # Voids 5 3 2 # Bowel Movements 0 1 Result Diagram: 01/05/17 0900 01/03/17716 Other Results Laboratory Tests Test 01/05/17 09:00 White Blood Count 15.1 TH/MM3 Red Blood Count 3.98 MIL/MM3 Hemoglobin 13.1 GM/DL Hematocrit 37.0 % Mean Corpuscular Volume 92.8 FL Mean Corpuscular Hemoglobin 33.0 PG Mean Corpuscular Hemoglobin Concent 35.5 % Red Cell Distribution Width 12.7 % Platelet Count 439 TH/MM3 Mean Platelet Volume 7.8 FL Neutrophils (%) (Auto) 83.4 % Lymphocytes (%) (Auto) 7.9 % Monocytes (%) (Auto) 6.4 % Eosinophils (%) (Auto) 1.9 % Basophils (%) (Auto) 0.4 % Neutrophils # (Auto) 12.6 TH/MM3 Lymphocytes # (Auto) 1.2 TH/MM3 Monocytes # (Auto) 1.0 TH/MM3 Eosinophils # (Auto) 0.3 TH/MM3 Basophils # (Auto) 0.1 TH/MM3 CBC Comment AUTO DIFF Differential Total Cells Counted 100 Neutrophils % (Manual) 82 % Band Neutrophils % 11 % Lymphocytes % 2 % Monocytes % 1 % Basophils % 1 % Neutrophils # (Manual) 14.5 TH/MM3 Myelocytes 3 % Differential Comment FINAL DIFF MANUAL Platelet Estimate NORMAL Platelet Morphology Comment NORMAL Red Cell Morphology Comment NORMAL Imaging Last Impressions Chest X-Ray 12/31/16 1508 Signed Impressions: Service Date/Time: Saturday, December 31, 2016 15:40 - CONCLUSION: 1. No acute cardiopulmonary findings. Pepe Ochoa MD Neck CT 12/31/16 0000 Signed Impressions: Service Date/Time: Saturday, December 31, 2016 17:58 - CONCLUSION: Broad area of cellulitis of the occiput and posterior neck without a perceptible abscess. Deny Kendall MD Objective Remarks GENERAL: NAD, A&Ox3 HEAD: Normocephalic. SKIN: dressing posterior neck dry and intact CARDIOVASCULAR: Regular rate and rhythm without murmurs, gallops, or rubs. RESPIRATORY: Breath sounds equal bilaterally. No accessory muscle use. GASTROINTESTINAL: Abdomen soft, non-tender, nondistended. MUSCULOSKELETAL: No cyanosis, or edema. NEURO: No focal neurological deficits. A/P Problem List: (1) Failure to thrive in adult ICD Code: R62.7 - Adult failure to thrive Status: Acute (2) Sepsis ICD Code: A41.9 - Sepsis, unspecified organism Status: Acute (3) Hyperglycemia ICD Code: R73.9 - Hyperglycemia, unspecified Status: Acute (4) Cellulitis ICD Code: L03.90 - Cellulitis, unspecified Status: Acute (5) Urinary tract infection ICD Code: N39.0 - Urinary tract infection, site not specified Status: Acute Assessment and Plan 71-year-old male admitted with sepsis secondary to cellulitis and UTI. Further evidence of bacteremia. Continue present treatment. Infectious disease and plastic surgery following. Plan for debridement. Sepsis Resolved Cellulitis Screen for abscess with CT shows no evidence of abscess Monitor for furuncles and carbuncles Vancomycin stopped 12/31/16 Continue cefazolin Probiotics Urinary tract infection Follow urine cultures Zosyn 12/31/16 - 01/03/17 Continue cefazolin Diabetes mellitus type 2 Uncontrolled, but improving Follow blood sugars Insulin sliding scale Diabetic diet, currently NPO pre-op Hypertension continue Vasotec IV PRN BP >160/90 will start Lisinopril 5 mg PO daily monitor BP Benign prostatic hypertrophy Continue tamsulosin Hypokalemia potassium 3.0 (01/03/17) replaced 01/05 recheck BMP in AM DVT prophylaxis Lovenox on hold pre- procedure SCDs Discharge planning Pending cultures Patient lives in [place] Patient may benefit from home health monitoring once discharged Discussed with patient, nurse and Dr. Deleon Problem Qualifiers (1) Sepsis: Qualified Codes: A41.9 - Sepsis, unspecified organism (2) Cellulitis: Qualified Codes: L03.221 - Cellulitis of neck (3) Urinary tract infection: Qualified Codes: N30.00 - Acute cystitis without hematuria Madhavi Sousa Jan 06, 2017 09:44
[2017-01-06 11:21] LABS: AUTOMATED NEUTROPHIL # 11.9 TH/MM3 (1.8-7.7); BASOPHIL # 0.1 TH/MM3 (0-0.2); BASOPHIL % 0.5 % (0.0-2.0); EOSINOPHIL # 0.2 TH/MM3 (0-0.4); EOSINOPHIL % 1.2 % (0.0-4.0); HEMATOCRIT 39.2 % (39.0-51.0); LYMPH % 9.6 % (9.0-44.0); LYMPHOCYTE # 1.4 TH/MM3 (1.0-4.8); MEAN CELL VOLUME 93.1 FL (80.0-100.0); MEAN CORPUSCULAR HEMOGLOBIN 32.1 PG (27.0-34.0); MEAN CORPUSCULAR HGB CONC 34.5 % (32.0-36.0); NEUT % 82.7 % (16.0-70.0); PLATELET COUNT 492 TH/MM3 (150-450); RED BLOOD COUNT 4.21 MIL/MM3 (4.50-5.90); RED CELL DISTRIBUTION WIDTH 12.7 % (11.6-17.2); WHITE BLOOD COUNT 14.4 TH/MM3 (4.0-11.0)
[2017-01-06 11:25] LABS: HEMO FLAGS AUTO DIFF
[2017-01-06 11:57] LABS: ALKALINE PHOSPHATASE 69 U/L (45-117); ALT (GPT) 14 U/L (12-78); TOTAL BILIRUBIN ADULT 0.4 MG/DL (0.2-1.0)
[2017-01-06] MEDS ORDERED: PROPOFOL 200 MG/20 ML AMP IV ONE (12:00)
[2017-01-06] MEDS ORDERED: DEXAMETHASONE SOD PHOS 4 MG/ML VIAL IV ONE (12:00)
[2017-01-06] MEDS ORDERED: LIDOCAINE HCL 1% PF 5 ML AMPULE OTHER ONE (12:00)
[2017-01-06] MEDS ORDERED: ROCURONIUM INJ 50 MG/5 ML SYRINGE IV PUSH ONE (12:00)
[2017-01-06] MEDS ORDERED: ONDANSETRON HCL 4 MG/2 ML VIAL IV PUSH ONE (12:00)
[2017-01-06] MEDS ORDERED: LACTATED RINGER'S 1000 ML INJ 1,000 ML IV ONE (12:00)
[2017-01-06] MEDS ORDERED: GLYCOPYRROLATE 1 MG/5 ML SYRINGE IV PUSH ONE (12:00)
[2017-01-06] MEDS ORDERED: NEOSTIGMINE 3 MG/3 ML SYR IV ONE (12:00)
[2017-01-06 12:06] LABS: ANION GAP 11 MEQ/L (5-15); AST (GOT) 17 U/L (15-37); BICARBONATE 27.4 MEQ/L (21.0-32.0); BLOOD UREA NITROGEN 4 MG/DL (7-18); CHLORIDE 102 MEQ/L (98-107); GLOMERULAR FILTRATION RATE 157 ML/MIN (>89); SODIUM (NA) 140 MEQ/L (136-145)
[2017-01-06 12:09] LABS: BANDS 5 % (0-6); EOSINOPHILS 3 % (0-4); METAMYELOCYTES 3 % (0-1); MYELOCYTES 3 % (0-0); NEUTROPHIL # MANUAL DIFF 12.5 TH/MM3 (1.8-7.7); PLATELET ESTIMATE SMEAR HIGH (NORMAL); PLATELET MORPHOLOGY NORMAL (NORMAL); POLYS (SEG NEUTROPHILS) 76 % (16-70); SCAN/DIFF FINAL DIFF MANUAL; WBC DIFF SAMPLE 100
[2017-01-06] MEDS ORDERED: FAMOTIDINE 20 MG/2 ML VIAL ONE (12:15)
[2017-01-06] MEDS ORDERED: ACETAMINOPHEN 1000 MG/100 ML 100 ML IV ONE (12:15)
[2017-01-06] MEDS ORDERED: DO NOT ADM ANY ANTICOAGULANT DRUGS PRN (14:35)
[2017-01-06] MEDS ORDERED: *morphine SULFATE 8 MG/ML PERIprocedure ONLY ONE (14:48)
[2017-01-06] MEDS ORDERED: LIDOCAINE 1.5%/EPINEPHrine 1:200,000 PF SOLN 10ML SDV INFIL ONE (14:57)
--- NOTE | 2017-01-06 22:01 | MP ---
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 Fahad Regalado ANESTHESIA General INDICATIONS A 71-year-old diabetic white male with approximately two week history of numerous draining areas on the back of his scalp growing MRSA. The patient has been on IV antibiotics for the last two or three days while he has been admitted. He is going for surgery today. He understands the nature of the surgery, possibility of bleeding and additional surgeries in the future. He also understands that the wound will need to be addressed and cared for for several weeks and eventually it may be possible to skin graft it. He will be referred to the wound care center at [facility] while he is in town. He plans to return back to [place] to his own home. PROCEDURE IN DETAIL The patient was brought to the operating room, was given supine position. Anesthesia was started. The patient was turned prone on the OR table with adequate padding. The prep and drape was done. Time-out was called and completed. The surgery was started by picking one of the several dozens of draining holes with a curette and gently exploring the underside of the skin to determine the extent of the necrotic area and then following the track of the curette shaft. Direct high power Bovie coagulation was used to remove the pieces of skin and small sequences ultimately removing most of the necrotic skin and removing a large part of the deep necrotic tissue itself. The underlying tissue was typical coagulative necrosis of a staph aureus. The wound edges were freshened for a final excision. The total wound was approximately 20 x 15 cm. The wound edges were sutured with continuous locking suture for hemostasis. The base of the entire wound was copiously scrubbed with Betadine scrub brush and rinsed clean. The area was dressed with Xeroform and Betadine soap, 4x4s. The patient remained stable. Intraoperative blood loss approximately 200 mL. No complications. signed, not fully reviewed MD SUSI Maxwell/ /2:17 PM /9:41 PM RACHEL
[2017-01-06] MEDS: TAMSULOSIN HCL 0.4 MG CAP PO SCH (22:33)
[2017-01-07] VITALS (8 sets, daily range): BP systolic 131–170; BP diastolic 67–97; PULSE 87–97; RESP 18–20; TEMP 97–98.3; O2SAT 94–97
[2017-01-07] MEDS: ceFAZolin 2 GM PREMIX 50 ML IV SCH ×2 (06:55→15:09)
[2017-01-07] MEDS: INSULIN ASPART SUPPLEMENTAL SCALE SQ SCH ×4 (08:00→21:00)
[2017-01-07] MEDS ORDERED: POTASSIUM CHLORIDE 20 MEQ CONTROLLED RELEASE TAB PO ONE (08:45)
--- NOTE | 2017-01-07 08:50 | PD.PLAS.PN ---
Subjective Remarks Patient stable asleep at present, did not wake him Dressing on the back of the scalp and neck is clean no blood spots OK to let the wound care nurse team take over for further care Sutures on the skin edges need to be removed in a week or so. Vital Signs Date Time Temp Pulse Resp B/P (MAP) Pulse Ox O2 Delivery O2 Flow Rate FiO2 01/07/17 07:30 97.3 88 18 161/77 (105) 97 01/07/17 04:00 98.3 89 18 131/67 (88) 95 01/07/17 00:48 97.0 88 18 168/70 (102) 95 01/06/17 20:30 97.5 87 20 177/89 (118) 96 01/06/17 20:29 98 21 01/06/17 17:12 97.5 86 20 172/79 (110) 98 01/06/17 15:30 97.4 89 22 145/77 (99) 99 Nasal Cannula 2 01/06/17 15:15 84 22 161/78 (105) 99 Nasal Cannula 2 01/06/17 15:00 89 22 134/75 (94) 99 Nasal Cannula 2 01/06/17 14:45 92 22 146/80 (102) 98 Nasal Cannula 2 01/06/17 14:35 97.4 87 22 138/82 (100) 97 Nasal Cannula 2 01/06/17 12:05 97.7 93 20 158/80 (106) 95 01/06/17 09:13 98.2 95 20 155/85 (108) 96 I/O 01/06/17 01/06/17 01/06/17 01/07/17 01/07/17 01/07/17 07:00 15:00 23:00 07:00 15:00 23:00 Intake Total 1700 ml 240 ml Output Total 200 ml Balance 1500 ml 240 ml Intake Oral 240 ml Other 1700 ml Estimated Blood Loss 200 ml # Voids 2 5 Laboratory Tests Test 01/06/17 10:50 White Blood Count 14.4 Red Blood Count 4.21 Hemoglobin 13.5 Hematocrit 39.2 Mean Corpuscular Volume 93.1 Mean Corpuscular Hemoglobin 32.1 Mean Corpuscular Hemoglobin Concent 34.5 Red Cell Distribution Width 12.7 Platelet Count 492 Mean Platelet Volume 7.7 Neutrophils (%) (Auto) 82.7 Lymphocytes (%) (Auto) 9.6 Monocytes (%) (Auto) 6.0 Eosinophils (%) (Auto) 1.2 Basophils (%) (Auto) 0.5 Neutrophils # (Auto) 11.9 Lymphocytes # (Auto) 1.4 Monocytes # (Auto) 0.9 Eosinophils # (Auto) 0.2 Basophils # (Auto) 0.1 CBC Comment AUTO DIFF Differential Total Cells Counted 100 Neutrophils % (Manual) 76 Band Neutrophils % 5 Lymphocytes % 6 Monocytes % 4 Eosinophils % 3 Neutrophils # (Manual) 12.5 Metamyelocytes 3 Myelocytes 3 Differential Comment FINAL DIFF MANUAL Platelet Estimate HIGH Platelet Morphology Comment NORMAL Red Cell Morphology Comment NORMAL Blood Urea Nitrogen 4 Creatinine 0.52 Random Glucose 184 Total Protein 6.0 Albumin 2.0 Calcium Level 7.7 Alkaline Phosphatase 69 Aspartate Amino Transf (AST/SGOT) 17 Alanine Aminotransferase (ALT/SGPT) 14 Total Bilirubin 0.4 Sodium Level 140 Potassium Level 3.0 Chloride Level 102 Carbon Dioxide Level 27.4 Anion Gap 11 Estimat Glomerular Filtration Rate 157 Date/Time Source Procedure Growth Status 01/03/17 12:48 Blood Peripheral Aerobic Blood Culture - Preliminary NO GROWTH IN 3 DAYS Resulted 01/03/17 12:48 Blood Peripheral Anaerobic Blood Culture - Preliminary NO GROWTH IN 3 DAYS Resulted 12/31/16 15:20 Urine Clean Catch Urine Culture - Final NO GROWTH IN 48 HOURS. Complete 01/06/17 13:37 Wound Scalp Fungal Smear - Final NO FUNGAL ELEMENTS SEEN. Resulted 01/06/17 13:37 Wound Scalp Fungal Culture Pending Resulted Result Diagram: 01/06/17 1050 01/06/17 1050 Del Regalado MD Jan 07, 2017 08:50
[2017-01-07] MEDS ORDERED: POTASSIUM CHLOR 20 MEQ PREMIX 100 ML IV ONE (09:00)
[2017-01-07] MEDS: SODIUM CHLORIDE 0.9% FLUSH 10 ML FLUSH IV FLUSH SCH ×2 (09:00→21:00)
[2017-01-07] MEDS: DOCUSATE SODIUM 50 MG/SENNA 8.6 MG TAB PO SCH (09:00)
--- NOTE | 2017-01-07 10:02 | HHI.PR ---
Subjective Remarks Patient is resting in bed A&O, in no acute distress reports feeling well, denies post operative pain. reports, "just itchy." Offers no other complaints Objective Vitals Vital Signs Date Time Temp Pulse Resp B/P (MAP) Pulse Ox O2 Delivery O2 Flow Rate FiO2 01/07/17 07:30 97.3 88 18 161/77 (105) 97 01/07/17 04:00 98.3 89 18 131/67 (88) 95 01/07/17 00:48 97.0 88 18 168/70 (102) 95 01/06/17 20:30 97.5 87 20 177/89 (118) 96 01/06/17 20:29 98 21 01/06/17 17:12 97.5 86 20 172/79 (110) 98 01/06/17 15:30 97.4 89 22 145/77 (99) 99 Nasal Cannula 2 01/06/17 15:15 84 22 161/78 (105) 99 Nasal Cannula 2 01/06/17 15:00 89 22 134/75 (94) 99 Nasal Cannula 2 01/06/17 14:45 92 22 146/80 (102) 98 Nasal Cannula 2 01/06/17 14:35 97.4 87 22 138/82 (100) 97 Nasal Cannula 2 01/06/17 12:05 97.7 93 20 158/80 (106) 95 I/O 01/06/17 01/06/17 01/06/17 01/07/17 01/07/17 01/07/17 07:00 15:00 23:00 07:00 15:00 23:00 Intake Total 1700 ml 240 ml Output Total 200 ml Balance 1500 ml 240 ml Intake Oral 240 ml Other 1700 ml Estimated Blood Loss 200 ml # Voids 2 5 Result Diagram: 01/06/17 1050 01/06/17 1050 Other Results Laboratory Tests Test 01/05/17 09:00 01/06/17 10:50 White Blood Count 15.1 TH/MM3 14.4 TH/MM3 Red Blood Count 3.98 MIL/MM3 4.21 MIL/MM3 Hemoglobin 13.1 GM/DL 13.5 GM/DL Hematocrit 37.0 % 39.2 % Mean Corpuscular Volume 92.8 FL 93.1 FL Mean Corpuscular Hemoglobin 33.0 PG 32.1 PG Mean Corpuscular Hemoglobin Concent 35.5 % 34.5 % Red Cell Distribution Width 12.7 % 12.7 % Platelet Count 439 TH/MM3 492 TH/MM3 Mean Platelet Volume 7.8 FL 7.7 FL Neutrophils (%) (Auto) 83.4 % 82.7 % Lymphocytes (%) (Auto) 7.9 % 9.6 % Monocytes (%) (Auto) 6.4 % 6.0 % Eosinophils (%) (Auto) 1.9 % 1.2 % Basophils (%) (Auto) 0.4 % 0.5 % Neutrophils # (Auto) 12.6 TH/MM3 11.9 TH/MM3 Lymphocytes # (Auto) 1.2 TH/MM3 1.4 TH/MM3 Monocytes # (Auto) 1.0 TH/MM3 0.9 TH/MM3 Eosinophils # (Auto) 0.3 TH/MM3 0.2 TH/MM3 Basophils # (Auto) 0.1 TH/MM3 0.1 TH/MM3 CBC Comment AUTO DIFF AUTO DIFF Differential Total Cells Counted 100 100 Neutrophils % (Manual) 82 % 76 % Band Neutrophils % 11 % 5 % Lymphocytes % 2 % 6 % Monocytes % 1 % 4 % Basophils % 1 % Neutrophils # (Manual) 14.5 TH/MM3 12.5 TH/MM3 Myelocytes 3 % 3 % Differential Comment FINAL DIFF MANUAL FINAL DIFF MANUAL Platelet Estimate NORMAL HIGH Platelet Morphology Comment NORMAL NORMAL Red Cell Morphology Comment NORMAL NORMAL Eosinophils % 3 % Metamyelocytes 3 % Blood Urea Nitrogen 4 MG/DL Creatinine 0.52 MG/DL Random Glucose 184 MG/DL Total Protein 6.0 GM/DL Albumin 2.0 GM/DL Calcium Level 7.7 MG/DL Alkaline Phosphatase 69 U/L Aspartate Amino Transf (AST/SGOT) 17 U/L Alanine Aminotransferase (ALT/SGPT) 14 U/L Total Bilirubin 0.4 MG/DL Sodium Level 140 MEQ/L Potassium Level 3.0 MEQ/L Chloride Level 102 MEQ/L Carbon Dioxide Level 27.4 MEQ/L Anion Gap 11 MEQ/L Estimat Glomerular Filtration Rate 157 ML/MIN Imaging Last Impressions Chest X-Ray 12/31/16 1508 Signed Impressions: Service Date/Time: Saturday, December 31, 2016 15:40 - CONCLUSION: 1. No acute cardiopulmonary findings. Pepe Ochoa MD Neck CT 12/31/16 0000 Signed Impressions: Service Date/Time: Saturday, December 31, 2016 17:58 - CONCLUSION: Broad area of cellulitis of the occiput and posterior neck without a perceptible abscess. Deny Kendall MD Objective Remarks GENERAL: NAD, A&Ox3 HEAD: Normocephalic. SKIN: surgical dressing posterior neck dry and intact CARDIOVASCULAR: Regular rate and rhythm without murmurs, gallops, or rubs. RESPIRATORY: Breath sounds equal bilaterally. No accessory muscle use. GASTROINTESTINAL: Abdomen soft, non-tender, nondistended. MUSCULOSKELETAL: No cyanosis, or edema. NEURO: No focal neurological deficits. Procedures 01/06/17 Wide excision carbuncle with deep debridement of the entire posterior scalp and upper neck 20 x [address] Regalado A/P Problem List: (1) Failure to thrive in adult ICD Code: R62.7 - Adult failure to thrive Status: Acute (2) Sepsis ICD Code: A41.9 - Sepsis, unspecified organism Status: Acute (3) Hyperglycemia ICD Code: R73.9 - Hyperglycemia, unspecified Status: Acute (4) Cellulitis ICD Code: L03.90 - Cellulitis, unspecified Status: Acute (5) Urinary tract infection ICD Code: N39.0 - Urinary tract infection, site not specified Status: Acute Assessment and Plan 71-year-old male admitted with sepsis secondary to cellulitis and UTI. Further evidence of bacteremia. Continue present treatment. Infectious disease and plastic surgery following. Plan for debridement. Sepsis Resolved Cellulitis Screen for abscess with CT shows no evidence of abscess furuncles and carbuncles Vancomycin stopped 12/31/16 Continue cefazolin per ID also followed by Dr. Mosley Probiotics Blood cultures from 12/31/16 revealed Staphylococcus Aureus 4/4 bottles repeat blood cultures 01/03 no growth for 3 days s/p Wide excision carbuncle with deep debridement of the entire posterior scalp and upper neck 20 x [address] Regalado on 01/06/17 Wound cafe consult placed per Dr. Regalado Diabetes mellitus type 2 Uncontrolled Follow blood sugars Insulin sliding scale Diabetic diet Hypertension continue Vasotec IV PRN BP >160/90 Start Lisinopril 5 mg PO daily monitor BP Benign prostatic hypertrophy Continue tamsulosin Hypokalemia potassium 3.0 (01/06/17)- replaced Mag 2.4 on 12/31 recheck BMP in AM DVT prophylaxis Lovenox on hold pre- procedure resume 01/07 SCDs Discharge planning Pending cultures Patient lives in [place] Patient may benefit from home health monitoring once discharged Discussed with patient, nurse and Dr. Deleon Problem Qualifiers (1) Sepsis: Qualified Codes: A41.9 - Sepsis, unspecified organism (2) Cellulitis: Qualified Codes: L03.221 - Cellulitis of neck (3) Urinary tract infection: Qualified Codes: N30.00 - Acute cystitis without hematuria Madhavi Sousa Jan 07, 2017 10:02
[2017-01-07] MEDS: LISINOPRIL 5 MG TAB PO SCH (10:39)
[2017-01-07] MEDS: LACTOBACILLUS ACIDOPHILUS TAB PO SCH ×3 (10:39→17:39)
[2017-01-07 10:50] LABS: HEMATOCRIT 36.6 % (39.0-51.0); MEAN CELL VOLUME 93.9 FL (80.0-100.0); MEAN CORPUSCULAR HEMOGLOBIN 31.9 PG (27.0-34.0); MEAN CORPUSCULAR HGB CONC 33.9 % (32.0-36.0); PLATELET COUNT 509 TH/MM3 (150-450); RED CELL DISTRIBUTION WIDTH 13.1 % (11.6-17.2); REVIEW FLAG FINAL; WHITE BLOOD COUNT 14.3 TH/MM3 (4.0-11.0)
[2017-01-07] MEDS: SODIUM CHLOR 0.9% 1000 ML INJ 1,000 ML IV SCH ×2 (12:23→21:02)
--- NOTE | 2017-01-07 14:21 | HHI.IDPN ---
Note Infectious Disease Note Patient is alert. Afebrile. Post debridement of the scalp. Admitted 12/31 with generalized weakness. PAST MEDICAL HISTORY 1. Diabetes mellitus. 2. Benign prostatic hypertrophy. 3. Hernia repair at age 17. ALLERGIES NO KNOWN DRUG ALLERGIES. ANTIBIOTICS: Ancef. OBJECTIVE: Vital Signs Date Time Temp Pulse Resp B/P (MAP) Pulse Ox O2 Delivery O2 Flow Rate FiO2 01/07/17 11:30 97.7 94 18 170/97 (121) 96 01/07/17 10:00 94 21 01/07/17 07:30 97.3 88 18 161/77 (105) 97 01/07/17 04:00 98.3 89 18 131/67 (88) 95 01/07/17 00:48 97.0 88 18 168/70 (102) 95 01/06/17 20:30 97.5 87 20 177/89 (118) 96 01/06/17 20:29 98 21 01/06/17 17:12 97.5 86 20 172/79 (110) 98 01/06/17 15:30 97.4 89 22 145/77 (99) 99 Nasal Cannula 2 01/06/17 15:15 84 22 161/78 (105) 99 Nasal Cannula 2 01/06/17 15:00 89 22 134/75 (94) 99 Nasal Cannula 2 01/06/17 14:45 92 22 146/80 (102) 98 Nasal Cannula 2 01/06/17 14:35 97.4 87 22 138/82 (100) 97 Nasal Cannula 2 Laboratory Tests Test 01/06/17 10:50 01/07/17 09:50 White Blood Count 14.4 TH/MM3 14.3 TH/MM3 Red Blood Count 4.21 MIL/MM3 3.90 MIL/MM3 Hemoglobin 13.5 GM/DL 12.4 GM/DL Hematocrit 39.2 % 36.6 % Mean Corpuscular Volume 93.1 FL 93.9 FL Mean Corpuscular Hemoglobin 32.1 PG 31.9 PG Mean Corpuscular Hemoglobin Concent 34.5 % 33.9 % Red Cell Distribution Width 12.7 % 13.1 % Platelet Count 492 TH/MM3 509 TH/MM3 Mean Platelet Volume 7.7 FL 7.5 FL Neutrophils (%) (Auto) 82.7 % Lymphocytes (%) (Auto) 9.6 % Monocytes (%) (Auto) 6.0 % Eosinophils (%) (Auto) 1.2 % Basophils (%) (Auto) 0.5 % Neutrophils # (Auto) 11.9 TH/MM3 Lymphocytes # (Auto) 1.4 TH/MM3 Monocytes # (Auto) 0.9 TH/MM3 Eosinophils # (Auto) 0.2 TH/MM3 Basophils # (Auto) 0.1 TH/MM3 CBC Comment AUTO DIFF Differential Total Cells Counted 100 Neutrophils % (Manual) 76 % Band Neutrophils % 5 % Lymphocytes % 6 % Monocytes % 4 % Eosinophils % 3 % Neutrophils # (Manual) 12.5 TH/MM3 Metamyelocytes 3 % Myelocytes 3 % Differential Comment FINAL DIFF MANUAL Platelet Estimate HIGH Platelet Morphology Comment NORMAL Red Cell Morphology Comment NORMAL Laboratory Tests Test 01/06/17 10:50 Blood Urea Nitrogen 4 MG/DL Creatinine 0.52 MG/DL Random Glucose 184 MG/DL Total Protein 6.0 GM/DL Albumin 2.0 GM/DL Calcium Level 7.7 MG/DL Alkaline Phosphatase 69 U/L Aspartate Amino Transf (AST/SGOT) 17 U/L Alanine Aminotransferase (ALT/SGPT) 14 U/L Total Bilirubin 0.4 MG/DL Sodium Level 140 MEQ/L Potassium Level 3.0 MEQ/L Chloride Level 102 MEQ/L Carbon Dioxide Level 27.4 MEQ/L Anion Gap 11 MEQ/L Estimat Glomerular Filtration Rate 157 ML/MIN Microbiology Date/Time Source Procedure Growth Status 01/06/17 13:37 Wound Scalp Fungal Smear - Final NO FUNGAL ELEMENTS SEEN. Resulted 01/06/17 13:37 Wound Scalp Fungal Culture Pending Resulted 01/06/17 13:37 Wound Scalp Acid Fast Stain Pending Worksheet 01/06/17 13:37 Wound Scalp Mycobacterial Culture Pending Worksheet 01/06/17 13:37 Wound Scalp Gram Stain - Final Resulted 01/06/17 13:37 Wound Culture - Preliminary Staphylococcus Aureus Resulted PHYSICAL EXAMINATION GENERAL: No acute distress. HEENT: (+) drainage from the scalp posterior. NECK: Supple without adenopathy. LUNGS: Clear breath sounds. HEART: Regular rate and rhythm. No murmurs. No rubs. No gallops. ABDOMEN: Bowel sounds present, soft. No tenderness. EXTREMITIES: No clubbing, cyanosis or edema. SKIN: No rash. NEUROLOGICAL: No gross focal findings. PSYCHIATRIC: Calm and cooperative. somewhat withdrawn. IMPRESSION 1. Bacteremia - staph aureus arising from cellulitis of the posterior aspect of the head. 2. Cellulitis/abscess involving the posterior aspect of head. Debrided. 3. Diabetes mellitus. RECOMMENDATIONS 1. Continue cefazolin. 2. Monitor repeat blood cultures. 3. Monitor the patient's clinical status. 4. Follow white blood cell count. Chava Mosley MD Jan 07, 2017 14:21
--- NOTE | 2017-01-07 18:08 | PD.WCN.NOT ---
Wound Consult Description: Consult placed for wound management of scalp per Dr Regalado Communicated with: SNEHA Espinal Recommendation: DAILY TO POSTERIOR OCCITPITAL CREST: Cleanse wound with NORMAL SALINE ONLY and apply Santyl (nickel thickness) to Quarter (0.125%) strength Dakins moistened gauze, and place in wound bed. Cover with ABD pad secured with stockinette. EVERY OTHER DAY TO UPPER POSTERIOR WOUND BED: Cleanse wound and apply Xeroform over wound bed and secure with Opti foam border dressing. Additional Information: Patient seen on for post surgical debridement of posterior scalp ( occipital crest). There was a wound measuring 1.8cm x 1.7cm x 1.1cm with scant sanguinous drainage and unknown 100% white/beige tissue noted in wound bed that was found open to air. Wound margins are sharp and surgical in nature. Periwound is unremarkable. Wound was cleansed with NS and gauze before applying Xeroform into wound bed and covering with an Optifoam border dressing that may remain in place for 2 days unless soiled or saturated. Next dressing change to be expected on Tuesday01/09/17. Lower wound on posterior scalp was dressed with gauze and Xeroform that was removed to cleanse with wound cleanser and measures ~6cm x 15.5cm x 1cm of ~80% moist necrotic adherent anderson/yellow slough and ~20% red moist non granulating tissue with scant serosang exudate noted. Undermining of ~1cm noted at 12 o' clock. Wound margins are noted with sutures in place circumferentially with eschar noted at ~7-8 o'clock. Periwound is erythematous, purple, blanchable, and minimally indurated. Wound was cleansed with wound cleanser and gauze prior to applying NS moistened gauze into wound bed and covering with 4x4's and ABD pad secured with rolled gauze and tape. No tape was applied to skin. Awaiting orders/recommendations for. Call placed to Dr Deleon and Dr Regalado. Esperanza Wolfe [facility] Jan 07, 2017 18:08 Thanh Styles MD Jan 11, 2017 11:59
[2017-01-07] MEDS: COLLAGENASE OINT 30 GM TUBE TOPICAL SCH (21:00)
[2017-01-07] MEDS: SODIUM HYPOCHLORITE 0.125% 500 ML BTL TOPICAL SCH (21:00)
[2017-01-08] VITALS (7 sets, daily range): BP systolic 134–164; BP diastolic 60–79; PULSE 69–91; RESP 16–20; TEMP 97.9–98.7; O2SAT 95–98
[2017-01-08] MEDS: ceFAZolin 2 GM PREMIX 50 ML IV SCH ×4 (00:04→22:07)
[2017-01-08] MEDS: ENOXAPARIN SODIUM 40 MG/0.4 ML SYRINGE SQ SCH ×2 (00:04→22:06)
[2017-01-08] MEDS: DOCUSATE SODIUM 50 MG/SENNA 8.6 MG TAB PO SCH ×3 (00:05→21:00)
[2017-01-08] MEDS: TAMSULOSIN HCL 0.4 MG CAP PO SCH ×2 (00:05→22:06)
[2017-01-08] MEDS: SODIUM CHLOR 0.9% 1000 ML INJ 1,000 ML IV SCH ×2 (06:51→17:02)
[2017-01-08] MEDS: INSULIN ASPART SUPPLEMENTAL SCALE SQ SCH ×4 (08:00→21:00)
[2017-01-08 08:45] LABS: AUTOMATED NEUTROPHIL # 8.6 TH/MM3 (1.8-7.7); BASOPHIL # 0.1 TH/MM3 (0-0.2); BASOPHIL % 0.5 % (0.0-2.0); EOSINOPHIL # 0.4 TH/MM3 (0-0.4); EOSINOPHIL % 3.4 % (0.0-4.0); LYMPH % 13.3 % (9.0-44.0); LYMPHOCYTE # 1.5 TH/MM3 (1.0-4.8); MEAN CELL VOLUME 93.4 FL (80.0-100.0); MEAN CORPUSCULAR HEMOGLOBIN 32.7 PG (27.0-34.0); MONO % 6.7 % (0.0-8.0); NEUT % 76.1 % (16.0-70.0); PLATELET COUNT 571 TH/MM3 (150-450); RED BLOOD COUNT 3.75 MIL/MM3 (4.50-5.90); WHITE BLOOD COUNT 11.3 TH/MM3 (4.0-11.0)
[2017-01-08 08:51] LABS: HEMO FLAGS AUTO DIFF
[2017-01-08] MEDS: COLLAGENASE OINT 30 GM TUBE TOPICAL SCH ×2 (09:00→21:00)
[2017-01-08 09:07] LABS: BICARBONATE 29.7 MEQ/L (21.0-32.0)
[2017-01-08] MEDS: SODIUM CHLORIDE 0.9% FLUSH 10 ML FLUSH IV FLUSH SCH ×2 (09:30→21:00)
[2017-01-08] MEDS: SODIUM HYPOCHLORITE 0.125% 500 ML BTL TOPICAL SCH ×2 (09:32→21:00)
[2017-01-08] MEDS: LISINOPRIL 5 MG TAB PO SCH (09:33)
[2017-01-08] MEDS: LACTOBACILLUS ACIDOPHILUS TAB PO SCH ×3 (09:33→18:37)
--- NOTE | 2017-01-08 10:06 | HHI.PR ---
Subjective Remarks no fever or chills patient states very minimal pain denies any dairrhea, nausea or vomiting Objective Vitals Vital Signs Date Time Temp Pulse Resp B/P (MAP) Pulse Ox O2 Delivery O2 Flow Rate FiO2 01/08/17 08:00 98.4 91 18 147/69 (95) 96 01/08/17 05:13 98.2 88 20 164/79 (107) 97 01/08/17 00:57 98.4 86 20 160/76 (104) 96 01/07/17 20:57 98.2 97 20 143/68 (93) 96 01/07/17 16:00 97.4 93 18 167/83 (111) 97 01/07/17 14:40 87 01/07/17 11:30 97.7 94 18 170/97 (121) 96 I/O 01/07/17 01/07/17 01/07/17 01/08/17 01/08/17 01/08/17 07:00 15:00 23:00 07:00 15:00 23:00 Intake Total 240 ml 100 ml Balance 240 ml 100 ml Intake Oral 240 ml IV Total 100 ml # Voids 5 2 Result Diagram: 01/08/17 0732 01/08/17 0732 Imaging Last Impressions Chest X-Ray 12/31/16 1508 Signed Impressions: Service Date/Time: Saturday, December 31, 2016 15:40 - CONCLUSION: 1. No acute cardiopulmonary findings. Pepe Ochoa MD Neck CT 12/31/16 0000 Signed Impressions: Service Date/Time: Saturday, December 31, 2016 17:58 - CONCLUSION: Broad area of cellulitis of the occiput and posterior neck without a perceptible abscess. Deny Kendall MD Objective Remarks awake and alert, oriented x 3, no acute distress, speech clear head- occipital area-horizontal wide gaping wound with surrounding erythema and swelling, dry, packing removed- minimal serosanguinous drainage in gauze, no foul odor top of the head with dime sized deep woun- dry, no drainage, packing in place -no surrounding erythema no nuchal rigidity lungs clear regular rhythm abdomen soft extremities no edema Procedures 01/06/17 Wide excision carbuncle with deep debridement of the entire posterior scalp and upper neck 20 x [address] Regalado A/P Problem List: (1) Failure to thrive in adult ICD Code: R62.7 - Adult failure to thrive Status: Acute (2) Sepsis ICD Code: A41.9 - Sepsis, unspecified organism Status: Acute (3) Hyperglycemia ICD Code: R73.9 - Hyperglycemia, unspecified Status: Acute (4) Cellulitis ICD Code: L03.90 - Cellulitis, unspecified Status: Acute (5) Urinary tract infection ICD Code: N39.0 - Urinary tract infection, site not specified Status: Acute Assessment and Plan 71-year-old male admitted with sepsis secondary to cellulitis and UTI. Further evidence of bacteremia. Continue present treatment. Infectious disease and plastic surgery following. Plan for debridement. Sepsis Resolved occipital abscess with Cellulitis S/P wide excision and debridement- 01/06 Vancomycin stopped 12/31/16 Continue cefazolin per ID- followed by Dr. Mosley Blood cultures from 12/31/16 revealed Staphylococcus Aureus 4/4 bottles repeat blood cultures 01/03 no growth to date s/p Wide excision carbuncle with deep debridement of the entire posterior scalp and upper neck 20 x [address] Regalado on 01/06/17 Wound cafe team/nurse ff Diabetes mellitus type 2 - Follow blood sugars and adjust regimen Insulin sliding scale Diabetic diet. check A1C resume his metformin 500 mg po bid Hypertension continue Vasotec IV PRN BP >160/90 Started Lisinopril 5 mg PO daily- started 01/07- monitor and adjust Benign prostatic hypertrophy Continue tamsulosin Hypokalemia - replace 10 meq IV x 3 - start po Maintenance KCL 20 meq daily -ff BMP DVT prophylaxis Lovenox on hold pre- procedure resume 01/07 SCDs Discharge planning Pending cultures Patient lives in [place] Patient may benefit from home health monitoring once discharged Problem Qualifiers (1) Sepsis: Qualified Codes: A41.9 - Sepsis, unspecified organism (2) Cellulitis: Qualified Codes: L03.221 - Cellulitis of neck (3) Urinary tract infection: Qualified Codes: N30.00 - Acute cystitis without hematuria Thanh Styles MD Jan 08, 2017 10:06
[2017-01-08 11:02] LABS: BANDS 11 % (0-6); BASOPHILS 1 % (0-2); EOSINOPHILS 2 % (0-4); METAMYELOCYTES 1 % (0-1); MYELOCYTES 3 % (0-0); NEUTROPHIL # MANUAL DIFF 8.9 TH/MM3 (1.8-7.7); PLATELET ESTIMATE SMEAR HIGH (NORMAL); PLATELET MORPHOLOGY NORMAL (NORMAL); POLYS (SEG NEUTROPHILS) 64 % (16-70); SCAN/DIFF FINAL DIFF MANUAL; WBC DIFF SAMPLE 100
[2017-01-08] MEDS: POTASSIUM CHLOR 10 MEQ PREMIX 100 ML IV SCH ×3 (11:11→16:24)
[2017-01-08] MEDS: POTASSIUM CHLORIDE 20 MEQ CONTROLLED RELEASE TAB PO SCH (11:12)
[2017-01-08 12:02] LABS: MAGNESIUM 1.8 MG/DL (1.5-2.5)
[2017-01-08] MEDS: metFORMIN HCL 500 MG TAB PO SCH (18:37)
[2017-01-09] VITALS (8 sets, daily range): BP systolic 125–152; BP diastolic 61–83; PULSE 66–104; RESP 16–21; TEMP 97.9–98.5; O2SAT 96–98
[2017-01-09] MEDS: SODIUM CHLOR 0.9% 1000 ML INJ 1,000 ML IV SCH ×3 (03:02→23:45)
[2017-01-09] MEDS: ceFAZolin 2 GM PREMIX 50 ML IV SCH ×3 (06:11→23:45)
[2017-01-09] MEDS: INSULIN ASPART SUPPLEMENTAL SCALE SQ SCH ×4 (08:00→21:00)
[2017-01-09] MEDS: POTASSIUM CHLORIDE 20 MEQ CONTROLLED RELEASE TAB PO SCH (09:00)
[2017-01-09] MEDS: DOCUSATE SODIUM 50 MG/SENNA 8.6 MG TAB PO SCH ×2 (09:00→21:00)
[2017-01-09] MEDS: LACTOBACILLUS ACIDOPHILUS TAB PO SCH ×3 (09:00→18:28)
[2017-01-09] MEDS: LISINOPRIL 5 MG TAB PO SCH (09:00)
[2017-01-09] MEDS: SODIUM CHLORIDE 0.9% FLUSH 10 ML FLUSH IV FLUSH SCH ×2 (09:00→21:00)
[2017-01-09] MEDS: COLLAGENASE OINT 30 GM TUBE TOPICAL SCH ×2 (09:01→21:07)
[2017-01-09] MEDS: metFORMIN HCL 500 MG TAB PO SCH ×2 (09:01→18:00)
[2017-01-09] MEDS: SODIUM HYPOCHLORITE 0.125% 500 ML BTL TOPICAL SCH ×2 (09:02→21:00)
--- NOTE | 2017-01-09 09:05 | HHI.PR ---
Subjective Remarks denies any head pain, fever or chills no diarrhea up and ambulating with a walker Objective Vitals Vital Signs Date Time Temp Pulse Resp B/P (MAP) Pulse Ox O2 Delivery O2 Flow Rate FiO2 01/09/17 08:00 98.3 74 18 132/64 (86) 98 01/09/17 04:20 97.9 67 20 125/70 (88) 96 01/09/17 04:14 104 01/09/17 03:32 98.1 66 21 140/67 (91) 96 01/08/17 20:15 97.9 69 20 135/65 (88) 95 01/08/17 16:00 98.7 82 18 142/71 (94) 97 01/08/17 12:00 98.2 76 16 134/60 (84) 98 01/08/17 09:27 97 21 I/O 01/08/17 01/08/17 01/08/17 01/09/17 01/09/17 01/09/17 07:00 15:00 23:00 07:00 15:00 23:00 Intake Total 580 ml 650 ml 400 ml Output Total 0 ml Balance 580 ml 650 ml 400 ml Intake Oral 480 ml 400 ml 400 ml IV Total 100 ml 250 ml Output Urine Total 0 ml # Voids 2 2 # Bowel Movements 0 0 Result Diagram: 01/08/17 0732 01/08/17 0732 Imaging Last Impressions Chest X-Ray 12/31/16 1508 Signed Impressions: Service Date/Time: Saturday, December 31, 2016 15:40 - CONCLUSION: 1. No acute cardiopulmonary findings. Pepe Ochoa MD Neck CT 12/31/16 0000 Signed Impressions: Service Date/Time: Saturday, December 31, 2016 17:58 - CONCLUSION: Broad area of cellulitis of the occiput and posterior neck without a perceptible abscess. Deny Kendall MD Objective Remarks awake and alert, occipital area-- wide open wound from debridement - packing in place top of the head with dime sized deep wound- dry, no drainage, packing in place-no surrounding erythema no nuchal rigidity lungs clear extremities no edema Procedures 01/06/17 Wide excision carbuncle with deep debridement of the entire posterior scalp and upper neck 20 x [address] Regalado A/P Problem List: (1) Failure to thrive in adult ICD Code: R62.7 - Adult failure to thrive Status: Acute (2) Sepsis ICD Code: A41.9 - Sepsis, unspecified organism Status: Acute (3) Hyperglycemia ICD Code: R73.9 - Hyperglycemia, unspecified Status: Acute (4) Cellulitis ICD Code: L03.90 - Cellulitis, unspecified Status: Acute (5) Urinary tract infection ICD Code: N39.0 - Urinary tract infection, site not specified Status: Acute Assessment and Plan 71-year-old male admitted with sepsis secondary to cellulitis and UTI. Further evidence of bacteremia. Continue present treatment. Infectious disease and plastic surgery following. occipital abscess with Cellulitis S/P wide excision and debridement- 01/06 Vancomycin stopped 12/31/16 Continue cefazolin per ID- followed by Dr. Mosley Blood cultures from 12/31/16 revealed Staphylococcus Aureus 4/4 bottles repeat blood cultures 01/03 no growth to date s/p Wide excision carbuncle with deep debridement of the entire posterior scalp and upper neck 20 x [address] Regalado on 01/06/17 Wound cafe team/nurse ff Diabetes mellitus type 2 - Follow blood sugars and adjust regimen Insulin sliding scale Diabetic diet. check A1C resumed his metformin 500 mg po bid 01/08 Hypertension- good readings continue Vasotec IV PRN BP >160/90 Started Lisinopril 5 mg PO daily- started 01/07- monitor and adjust Benign prostatic hypertrophy Continue tamsulosin Hypokalemia- persistent K 3.0 - replace 10 meq IV x 3 01/08 - started po Maintenance KCL 20 meq daily 01/08 -ff BMP- pending today DVT prophylaxis Lovenox SCDs Discharge planning Pending cultures Patient lives in [place] Patient may benefit from home health monitoring once discharged b[place] to determine course of antibiotics and will likely need evaluation for flap - will defer to Plastics Problem Qualifiers (1) Sepsis: Qualified Codes: A41.9 - Sepsis, unspecified organism (2) Cellulitis: Qualified Codes: L03.221 - Cellulitis of neck (3) Urinary tract infection: Qualified Codes: N30.00 - Acute cystitis without hematuria Thanh Styles MD Jan 09, 2017 09:05
[2017-01-09 16:01] LABS: ANION GAP 9 MEQ/L (5-15); BICARBONATE 29.2 MEQ/L (21.0-32.0); BLOOD UREA NITROGEN 4 MG/DL (7-18); CHLORIDE 101 MEQ/L (98-107); GLOMERULAR FILTRATION RATE 157 ML/MIN (>89); POTASSIUM 3.4 MEQ/L (3.5-5.1); SODIUM (NA) 139 MEQ/L (136-145)
[2017-01-09] MEDS: ENOXAPARIN SODIUM 40 MG/0.4 ML SYRINGE SQ SCH (21:05)
[2017-01-09] MEDS: TAMSULOSIN HCL 0.4 MG CAP PO SCH (21:06)
[2017-01-10] VITALS (8 sets, daily range): BP systolic 115–157; BP diastolic 69–87; PULSE 77–96; RESP 17–18; TEMP 97.7–98.2; O2SAT 94–98
[2017-01-10] MEDS: ceFAZolin 2 GM PREMIX 50 ML IV SCH ×3 (06:10→22:57)
[2017-01-10] MEDS: INSULIN ASPART SUPPLEMENTAL SCALE SQ SCH ×4 (08:00→20:40)
--- NOTE | 2017-01-10 08:55 | HHI.PR ---
Subjective Remarks no complains of head or scalp pain, no nausea or vomiting no diarrhea Objective Vitals Vital Signs Date Time Temp Pulse Resp B/P (MAP) Pulse Ox O2 Delivery O2 Flow Rate FiO2 01/10/17 08:08 98.2 84 17 155/79 (104) 96 01/10/17 06:03 98.1 77 18 156/87 (110) 96 01/10/17 00:00 97.7 80 18 115/69 (84) 94 01/09/17 20:00 98.0 95 18 152/83 (106) 97 01/09/17 16:00 98.5 94 19 128/61 (83) 96 01/09/17 12:00 98.0 72 16 126/61 (82) 96 01/09/17 09:38 97 21 I/O 01/09/17 01/09/17 01/09/17 01/10/17 01/10/17 01/10/17 07:00 15:00 23:00 07:00 15:00 23:00 Intake Total 400 ml 1000 ml Balance 400 ml 1000 ml Intake Oral 400 ml 1000 ml # Voids 2 3 2 # Bowel Movements 0 0 0 Result Diagram: 01/08/17 0732 01/09/17 1439 Imaging Last Impressions Chest X-Ray 12/31/16 1508 Signed Impressions: Service Date/Time: Saturday, December 31, 2016 15:40 - CONCLUSION: 1. No acute cardiopulmonary findings. Pepe Ochoa MD Neck CT 12/31/16 0000 Signed Impressions: Service Date/Time: Saturday, December 31, 2016 17:58 - CONCLUSION: Broad area of cellulitis of the occiput and posterior neck without a perceptible abscess. Deny Kendall MD Objective Remarks awake and alert, occipital area-- wide open wound - packing in place- + purulence top of the head with dime sized deep wound- dry, no drainage, packing in place-no surrounding erythema no nuchal rigidity lungs clear extremities no edema Procedures 01/06/17 Wide excision carbuncle with deep debridement of the entire posterior scalp and upper neck 20 x [address] Regalado A/P Problem List: (1) Failure to thrive in adult ICD Code: R62.7 - Adult failure to thrive Status: Acute (2) Sepsis ICD Code: A41.9 - Sepsis, unspecified organism Status: Acute (3) Hyperglycemia ICD Code: R73.9 - Hyperglycemia, unspecified Status: Acute (4) Cellulitis ICD Code: L03.90 - Cellulitis, unspecified Status: Acute (5) Urinary tract infection ICD Code: N39.0 - Urinary tract infection, site not specified Status: Acute Assessment and Plan 71-year-old male admitted with sepsis secondary occipital abscess - MSSA S/P wide excision and debridement- 01/06 of the entire posterior scalp and upper neck 20 x [address] Regalado on 01/06/17 Vancomycin stopped 12/31/16 Continue cefazolin per ID- followed by Dr. Mosley Blood cultures from 12/31/16 revealed Staphylococcus Aureus 4/4 bottles repeat blood cultures 01/03 no growth to date urine C and s no growth in 48 hours Wound cafe team/nurse ff Diabetes mellitus type 2 - Follow blood sugars and adjust regimen Insulin sliding scale Diabetic diet. check A1C- pending resumed his metformin 500 mg po bid 01/08- good readings Hypertension- - continue Vasotec IV PRN BP >160/90 Started Lisinopril 5 mg PO daily- started 01/07- monitor and adjust Benign prostatic hypertrophy Continue tamsulosin Hypokalemia- persistent K 3.0 - KCL 20 meq daily 01/08 -ff BMP-recheck today Poor po intake -get a nutritinist consult - patient encourage- picky with food DVT prophylaxis Lovenox SCDs Discharge planning Patient lives in [place] Patient may benefit from home health monitoring once discharged need to determine course of antibiotics and will likely need evaluation for flap - will defer to Plastics Problem Qualifiers (1) Sepsis: Qualified Codes: A41.9 - Sepsis, unspecified organism (2) Cellulitis: Qualified Codes: L03.221 - Cellulitis of neck (3) Urinary tract infection: Qualified Codes: N30.00 - Acute cystitis without hematuria Thanh Styles MD Jan 10, 2017 08:55
[2017-01-10] MEDS: SODIUM CHLORIDE 0.9% FLUSH 10 ML FLUSH IV FLUSH SCH ×2 (09:00→20:39)
[2017-01-10] MEDS: DOCUSATE SODIUM 50 MG/SENNA 8.6 MG TAB PO SCH ×2 (09:27→20:39)
[2017-01-10] MEDS: LISINOPRIL 5 MG TAB PO SCH (09:27)
[2017-01-10] MEDS: metFORMIN HCL 500 MG TAB PO SCH ×2 (09:27→16:40)
[2017-01-10] MEDS: LACTOBACILLUS ACIDOPHILUS TAB PO SCH ×3 (09:27→16:40)
[2017-01-10] MEDS: POTASSIUM CHLORIDE 20 MEQ CONTROLLED RELEASE TAB PO SCH ×2 (09:27→20:39)
--- NOTE | 2017-01-10 11:52 | HHI.IDPN ---
Note Infectious Disease Note Patient is alert. Afebrile. Denies chills. Post debridement of the scalp. Admitted 12/31 with generalized weakness. PAST MEDICAL HISTORY 1. Diabetes mellitus. 2. Benign prostatic hypertrophy. 3. Hernia repair at age 17. ALLERGIES NO KNOWN DRUG ALLERGIES. ANTIBIOTICS: Ancef. OBJECTIVE: Vital Signs Date Time Temp Pulse Resp B/P (MAP) Pulse Ox O2 Delivery O2 Flow Rate FiO2 01/10/17 08:57 94 01/10/17 08:08 98.2 84 17 155/79 (104) 96 01/10/17 06:03 98.1 77 18 156/87 (110) 96 01/10/17 00:00 97.7 80 18 115/69 (84) 94 01/09/17 20:00 98.0 95 18 152/83 (106) 97 01/09/17 16:00 98.5 94 19 128/61 (83) 96 01/09/17 12:00 98.0 72 16 126/61 (82) 96 Laboratory Tests Test 01/09/17 14:39 Blood Urea Nitrogen 4 MG/DL Creatinine 0.52 MG/DL Random Glucose 118 MG/DL Calcium Level 8.1 MG/DL Sodium Level 139 MEQ/L Potassium Level 3.4 MEQ/L Chloride Level 101 MEQ/L Carbon Dioxide Level 29.2 MEQ/L Anion Gap 9 MEQ/L Estimat Glomerular Filtration Rate 157 ML/MIN Microbiology Date/Time Source Procedure Growth Status 01/06/17 13:37 Wound Scalp Fungal Smear - Final NO FUNGAL ELEMENTS SEEN. Resulted 01/06/17 13:37 Wound Scalp Fungal Culture Pending Resulted 01/06/17 13:37 Wound Scalp Acid Fast Stain Pending Worksheet 01/06/17 13:37 Wound Scalp Mycobacterial Culture Pending Worksheet 01/06/17 13:37 Wound Scalp Gram Stain - Final Resulted 01/06/17 13:37 Wound Culture - Preliminary Staphylococcus Aureus Resulted PHYSICAL EXAMINATION GENERAL: No acute distress. HEENT: Purulent drainage from posterior scalp wound which is ulcerated post debridement. NECK: Supple without adenopathy. LUNGS: Clear breath sounds. HEART: Regular rate and rhythm. No murmurs. No rubs. No gallops. ABDOMEN: Bowel sounds present, soft. No tenderness. EXTREMITIES: No clubbing, cyanosis or edema. SKIN: No rash. NEUROLOGICAL: No gross focal findings. PSYCHIATRIC: Calm and cooperative. Flat affect. IMPRESSION 1. Bacteremia - staph aureus arising from cellulitis of the posterior aspect of the head. 2. Cellulitis/abscess involving the posterior aspect of head. Debrided. 3. Diabetes mellitus. RECOMMENDATIONS 1. Continue cefazolin. 2. Wound care. ? skin graft. 3. Monitor the patient's clinical status. Chava Mosley MD Jan 10, 2017 11:52
[2017-01-10 11:53] LABS: AUTOMATED NEUTROPHIL # 8.8 TH/MM3 (1.8-7.7); BASOPHIL # 0.1 TH/MM3 (0-0.2); BASOPHIL % 0.8 % (0.0-2.0); EOSINOPHIL # 0.3 TH/MM3 (0-0.4); EOSINOPHIL % 2.4 % (0.0-4.0); HEMATOCRIT 35.5 % (39.0-51.0); LYMPHOCYTE # 1.6 TH/MM3 (1.0-4.8); MEAN CELL VOLUME 92.5 FL (80.0-100.0); MEAN CORPUSCULAR HEMOGLOBIN 32.5 PG (27.0-34.0); MEAN CORPUSCULAR HGB CONC 35.1 % (32.0-36.0); MONO % 5.4 % (0.0-8.0); NEUT % 77.4 % (16.0-70.0); PLATELET COUNT 608 TH/MM3 (150-450); RED BLOOD COUNT 3.84 MIL/MM3 (4.50-5.90); RED CELL DISTRIBUTION WIDTH 12.8 % (11.6-17.2); WHITE BLOOD COUNT 11.4 TH/MM3 (4.0-11.0)
[2017-01-10 11:58] LABS: HEMO FLAGS AUTO DIFF
[2017-01-10 12:13] LABS: POTASSIUM 3.4 MEQ/L (3.5-5.1)
[2017-01-10 12:28] LABS: BANDS 1 % (0-6); EOSINOPHILS 1 % (0-4); MYELOCYTES 4 % (0-0); NEUTROPHIL # MANUAL DIFF 8.8 TH/MM3 (1.8-7.7); POLYS (SEG NEUTROPHILS) 72 % (16-70); WBC DIFF SAMPLE 100
[2017-01-10 12:30] LABS: PLATELET ESTIMATE SMEAR HIGH (NORMAL); PLATELET MORPHOLOGY NORMAL (NORMAL); SCAN/DIFF FINAL DIFF MANUAL
[2017-01-10] MEDS: COLLAGENASE OINT 30 GM TUBE TOPICAL SCH ×2 (12:56→20:46)
[2017-01-10] MEDS: SODIUM CHLOR 0.9% 1000 ML INJ 1,000 ML IV SCH ×2 (12:56→16:41)
[2017-01-10] MEDS: SODIUM HYPOCHLORITE 0.125% 500 ML BTL TOPICAL SCH ×2 (12:56→20:47)
[2017-01-10 13:34] LABS: HEMOGLOBIN A1a 1.3 %; HEMOGLOBIN A1b 0.9 %; HEMOGLOBIN F 2.1 %; HEMOGLOBIN LA1C 1.6 %; HEMOGLOBIN P3 3.6 %
[2017-01-10] MEDS ORDERED: POTASSIUM CHLORIDE 20 MEQ CONTROLLED RELEASE TAB PO STA (15:18)
[2017-01-10] MEDS: ENOXAPARIN SODIUM 40 MG/0.4 ML SYRINGE SQ SCH (20:38)
[2017-01-10] MEDS: TAMSULOSIN HCL 0.4 MG CAP PO SCH (20:39)
[2017-01-11 02:10] VITALS: PULSE 106
[2017-01-11 04:00] VITALS: BP 141/86; PULSE 86; RESP 18; TEMP 97.3; O2SAT 97
[2017-01-11] MEDS: SODIUM CHLOR 0.9% 1000 ML INJ 1,000 ML IV SCH (05:02)
[2017-01-11] MEDS: ceFAZolin 2 GM PREMIX 50 ML IV SCH (06:10)
[2017-01-11] MEDS: INSULIN ASPART SUPPLEMENTAL SCALE SQ SCH ×3 (08:00→16:30)
[2017-01-11 08:29] VITALS: BP 153/76; PULSE 85; RESP 18; TEMP 98.1; O2SAT 96
[2017-01-11] MEDS: COLLAGENASE OINT 30 GM TUBE TOPICAL SCH (09:00)
[2017-01-11] MEDS: SODIUM CHLORIDE 0.9% FLUSH 10 ML FLUSH IV FLUSH SCH (09:00)
[2017-01-11] MEDS: SODIUM HYPOCHLORITE 0.125% 500 ML BTL TOPICAL SCH (09:00)
[2017-01-11 09:38] LABS: BICARBONATE 24.9 MEQ/L (21.0-32.0); POTASSIUM 3.7 MEQ/L (3.5-5.1)
[2017-01-11] MEDS: LISINOPRIL 5 MG TAB PO SCH (10:08)
[2017-01-11] MEDS: DOCUSATE SODIUM 50 MG/SENNA 8.6 MG TAB PO SCH (10:08)
[2017-01-11] MEDS: metFORMIN HCL 500 MG TAB PO SCH (10:09)
[2017-01-11] MEDS: LACTOBACILLUS ACIDOPHILUS TAB PO SCH ×2 (10:09→12:16)
[2017-01-11] MEDS: POTASSIUM CHLORIDE 20 MEQ CONTROLLED RELEASE TAB PO SCH (10:09)
--- NOTE | 2017-01-11 10:16 | HHI.PR ---
Subjective Remarks no complains Objective Vitals Vital Signs Date Time Temp Pulse Resp B/P (MAP) Pulse Ox O2 Delivery O2 Flow Rate FiO2 01/11/17 08:29 98.1 85 18 153/76 (101) 96 01/11/17 04:00 97.3 86 18 141/86 (104) 97 01/11/17 02:10 106 01/10/17 20:00 98.1 94 18 157/84 (108) 98 01/10/17 18:01 95 01/10/17 15:51 98.0 96 18 145/79 (101) 95 01/10/17 12:08 97.9 92 18 141/69 (93) 96 I/O 01/10/17 01/10/17 01/10/17 01/11/17 01/11/17 01/11/17 07:00 15:00 23:00 07:00 15:00 23:00 Intake Total 480 ml 1000 ml Balance 480 ml 1000 ml Intake Oral 480 ml IV Total 1000 ml # Voids 2 4 # Bowel Movements 1 1 Result Diagram: 01/10/17 1126 01/11/17 0839 Imaging Last Impressions Chest X-Ray 12/31/16 1508 Signed Impressions: Service Date/Time: Saturday, December 31, 2016 15:40 - CONCLUSION: 1. No acute cardiopulmonary findings. Pepe Ochoa MD Neck CT 12/31/16 0000 Signed Impressions: Service Date/Time: Saturday, December 31, 2016 17:58 - CONCLUSION: Broad area of cellulitis of the occiput and posterior neck without a perceptible abscess. Deny Kendall MD Objective Remarks awake and alert, occipital area-- wide open wound - packing in place, dry, minimal blood on gauze , no pus noted top of the head with dime sized deep wound- dry, no drainage, packing in place-no surrounding erythema no nuchal rigidity lungs clear extremities no edema Procedures 01/06/17 Wide excision carbuncle with deep debridement of the entire posterior scalp and upper neck 20 x [address] Regalado A/P Problem List: (1) Failure to thrive in adult ICD Code: R62.7 - Adult failure to thrive Status: Acute (2) Sepsis ICD Code: A41.9 - Sepsis, unspecified organism Status: Acute (3) Hyperglycemia ICD Code: R73.9 - Hyperglycemia, unspecified Status: Acute (4) Cellulitis ICD Code: L03.90 - Cellulitis, unspecified Status: Acute (5) Urinary tract infection ICD Code: N39.0 - Urinary tract infection, site not specified Status: Acute Assessment and Plan 71-year-old male admitted with sepsis secondary occipital abscess - MSSA S/P wide excision and debridement- 01/06 of the entire posterior scalp and upper neck 20 x [address] Regalado on 01/06/17 Continue cefazolin per ID- followed by Dr. Mosley- started 01.03 Blood cultures from 12/31/16 revealed Staphylococcus Aureus 4/4 bottles. repeat blood cultures 01/03-no growth Wound cafe team/nurse ff DAILY TO POSTERIOR OCCITPITAL CREST: Cleanse wound with NORMAL SALINE ONLY and apply Santyl (nickel thickness) to Quarter (0.125%) strength Dakins moistened gauze, and place in wound bed. Cover with ABD pad secured with stockinette. EVERY OTHER DAY TO UPPER POSTERIOR WOUND BED: Cleanse wound and apply Xeroform over wound bed and secure with Opti foam border dressing. d/w Dr. Regalado- if DC ff up with Wound care center- Dr. Martin- will eventually need flap/graft - reevaluate/referral as OP referral to Plastics D/w Dr. Mosley- will give IV Ancef till 01/18 will order for a PICC line Diabetes mellitus type 2 - Follow blood sugars and adjust regimen Insulin sliding scale on metformin 500 mg po bid 01/08- good readings Hypertension- - continue Vasotec IV PRN BP >160/90 Lisinopril 5 mg PO daily- started 01/07- monitor and adjust Benign prostatic hypertrophy Continue tamsulosin Hypokalemia- improved - KCL 20 meq po bid Poor po intake- per patient improved - patient encourage- picky with food - dietitian ff DVT prophylaxis Lovenox SCDs Discharge planning Patient lives in [facility] to [facility] if PICC line place and arranged- D/w [facility] Problem Qualifiers (1) Sepsis: Qualified Codes: A41.9 - Sepsis, unspecified organism (2) Cellulitis: Qualified Codes: L03.221 - Cellulitis of neck (3) Urinary tract infection: Qualified Codes: N30.00 - Acute cystitis without hematuria Thanh Styles MD Jan 11, 2017 10:16
[2017-01-11 11:00] VITALS: PULSE 83
--- NOTE | 2017-01-11 11:22 | HHI.FF ---
Infusion Therapy Location of Infusion Therapy: [facility] Infusion Therapy Order Patient Information Patient Weight 68.6 kg Diagnosis: (1) Sepsis Diagnosis Cellulitis - scalp Coded Allergies: No Known Drug Allergies (Verified Allergy, Unknown, 12/31/16) Administer Medication Cefazolin 2 grams IV q 8 hours Stop Treatment: Jan 18, 2017 Additional Information Venous access: PICC Line Additional Instructions [x] Peripheral flush and dressing changes per protocol [x] Implanted port and central director online marketing: * Implanted port: 10 ml Normal Saline followed by 5 ml Heparin 100 units/ml Heparin flush after each use and monthly to maintain. [] May leave port accessed during therapy. [] May leave peripheral site accessed for duration of therapy. [x] If patient has SOB or respiratory distress, check oxygen saturation. If less than 90% or clinical signs of respiratory distress, administer oxygen at 2 L/min. via nasal cannula and notify physician. [x] Anaphylaxis/Reaction orders: * Stop infusion. * Keep IV line open with saline flush. * Notify physician. * Monitor vital signs every 15 minutes until symptoms resolve. * Check Oxygen saturation; Oxygen at 2 L/min. via nasal cannula if less than 90% or clinical signs of respiratory distress. * Administer diphenhydramine (Benadryl) 25 mg IV STAT, (unless patient has received as pre-med). May repeat once, if necessary. * Solu-Cortef 250 mg IVP over 30-60 seconds, use 100 mg vials for each dissolution. * Epinephrine (1mg/1 ml) 0.3 mg subcutaneously or IVP now with any signs of respiratory distress. * Check with physician for new additional pre-med orders if patient is re- challenged or re-treated. [x] May remove PICC line when treatment complete, after confirming with Physician. [x] If the patient is admitted to the hospital, the ED, or transferred via [facility] , complete transfer form including medication reconciliation order sheet. Laboratory Tests Weekly Labs: Chava Arana MD Jan 11, 2017 11:22
--- NOTE | 2017-01-11 11:27 | HHI.IDPN ---
Note Infectious Disease Note Patient is alert. Says he feels okay. Afebrile. Denies chills. Post debridement of the scalp. Admitted 12/31 with generalized weakness. PAST MEDICAL HISTORY 1. Diabetes mellitus. 2. Benign prostatic hypertrophy. 3. Hernia repair at age 17. ALLERGIES NO KNOWN DRUG ALLERGIES. ANTIBIOTICS: Ancef. OBJECTIVE: Vital Signs Date Time Temp Pulse Resp B/P (MAP) Pulse Ox O2 Delivery O2 Flow Rate FiO2 01/11/17 11:00 83 01/11/17 08:29 98.1 85 18 153/76 (101) 96 01/11/17 04:00 97.3 86 18 141/86 (104) 97 01/11/17 02:10 106 01/10/17 20:00 98.1 94 18 157/84 (108) 98 01/10/17 18:01 95 01/10/17 15:51 98.0 96 18 145/79 (101) 95 01/10/17 12:08 97.9 92 18 141/69 (93) 96 Laboratory Tests Test 01/10/17 11:26 White Blood Count 11.4 TH/MM3 Red Blood Count 3.84 MIL/MM3 Hemoglobin 12.5 GM/DL Hematocrit 35.5 % Mean Corpuscular Volume 92.5 FL Mean Corpuscular Hemoglobin 32.5 PG Mean Corpuscular Hemoglobin Concent 35.1 % Red Cell Distribution Width 12.8 % Platelet Count 608 TH/MM3 Mean Platelet Volume 7.1 FL Neutrophils (%) (Auto) 77.4 % Lymphocytes (%) (Auto) 14.0 % Monocytes (%) (Auto) 5.4 % Eosinophils (%) (Auto) 2.4 % Basophils (%) (Auto) 0.8 % Neutrophils # (Auto) 8.8 TH/MM3 Lymphocytes # (Auto) 1.6 TH/MM3 Monocytes # (Auto) 0.6 TH/MM3 Eosinophils # (Auto) 0.3 TH/MM3 Basophils # (Auto) 0.1 TH/MM3 CBC Comment AUTO DIFF Differential Total Cells Counted 100 Neutrophils % (Manual) 72 % Band Neutrophils % 1 % Lymphocytes % 15 % Monocytes % 7 % Eosinophils % 1 % Neutrophils # (Manual) 8.8 TH/MM3 Myelocytes 4 % Differential Comment FINAL DIFF MANUAL Platelet Estimate HIGH Platelet Morphology Comment NORMAL Polychromasia 2.0 % Laboratory Tests Test 01/09/17 14:39 01/10/17 11:26 01/11/17 08:39 Blood Urea Nitrogen 4 MG/DL 5 MG/DL 5 MG/DL Creatinine 0.52 MG/DL 0.52 MG/DL 0.53 MG/DL Random Glucose 118 MG/DL 105 MG/DL 86 MG/DL Calcium Level 8.1 MG/DL 8.1 MG/DL 7.9 MG/DL Sodium Level 139 MEQ/L 138 MEQ/L 139 MEQ/L Potassium Level 3.4 MEQ/L 3.4 MEQ/L 3.7 MEQ/L Chloride Level 101 MEQ/L 102 MEQ/L 104 MEQ/L Carbon Dioxide Level 29.2 MEQ/L 25.0 MEQ/L 24.9 MEQ/L Anion Gap 9 MEQ/L 11 MEQ/L 10 MEQ/L Estimat Glomerular Filtration Rate 157 ML/MIN 157 ML/MIN 154 ML/MIN Hemoglobin A1c 8.1 % Microbiology Date/Time Source Procedure Growth Status 01/06/17 13:37 Wound Scalp Fungal Smear - Final NO FUNGAL ELEMENTS SEEN. Resulted 01/06/17 13:37 Wound Scalp Fungal Culture Pending Resulted 01/06/17 13:37 Wound Scalp Acid Fast Stain Pending Worksheet 01/06/17 13:37 Wound Scalp Mycobacterial Culture Pending Worksheet 01/06/17 13:37 Wound Scalp Gram Stain - Final Resulted 01/06/17 13:37 Wound Culture - Preliminary Staphylococcus Aureus Resulted PHYSICAL EXAMINATION GENERAL: No acute distress. HEENT: Wound at the posterior scalp. Less erythema. NECK: Supple without adenopathy. LUNGS: Breath sounds clear. HEART: Regular rate and rhythm. No murmurs. No rubs. No gallops. ABDOMEN: Bowel sounds present, soft. Nontender. EXTREMITIES: No clubbing, cyanosis or edema. SKIN: No rash. NEUROLOGICAL: No gross focal findings. PSYCHIATRIC: Calm and cooperative. Flat affect. IMPRESSION 1. Bacteremia - staph aureus arising from cellulitis of the posterior aspect of the head. 2. Cellulitis/abscess involving the posterior aspect of head. Debrided. 3. Diabetes mellitus. RECOMMENDATIONS Continue Cefazolin for 10 more days IV. [facility] for [facility]. D/W Case management. Chava Mosley MD Jan 11, 2017 11:27
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
[2017-01-11 12:05] VITALS: BP 155/76; PULSE 80; RESP 18; TEMP 98.2; O2SAT 97
[2017-01-11] MEDS ORDERED: HYDR-3583 PO (13:36)
[2017-01-11] MEDS ORDERED: POTA20TA5 PO (13:36)
[2017-01-11] MEDS ORDERED: LISI-519 PO (13:36)
[2017-01-11 16:19] VITALS: BP 138/70; PULSE 87; RESP 18; TEMP 98.5; O2SAT 97
== END 2017-01-11 17:14 | DRG 854 ==
LOC: NEPC 14:42 → NEDA 18:48 → N05B 20:59
PROVIDERS: ADMIT Internal Medicine; ATTEND Internal Medicine
PROC: 0JB00ZZ Excision of Scalp Subcutaneous Tissue and Fascia, Open Approach (ICD-10-PCS; 2017-01-06)
PROC: 0JB50ZZ Excision of Left Neck Subcutaneous Tissue and Fascia, Open Approach (ICD-10-PCS; principal; 2017-01-06 13:01)
DX: A41.01 Sepsis due to Methicillin susceptible Staphylococcus aureus (principal); L03.221 Cellulitis of neck; E11.628 Type 2 diabetes mellitus with other skin complications; E11.65 Type 2 diabetes mellitus with hyperglycemia; N30.00 Acute cystitis without hematuria; L03.811 Cellulitis of head [any part, except face]; B95.61 Methicillin susceptible Staphylococcus aureus infection as the cause of diseases classified elsewhere; N40.0 Benign prostatic hyperplasia without lower urinary tract symptoms; R62.7 Adult failure to thrive; L02.13 Carbuncle of neck; L02.831 Carbuncle of head [any part, except face]; E87.6 Hypokalemia; I10 Essential (primary) hypertension; Z79.84 Long term (current) use of oral hypoglycemic drugs
CPT/HCPCS: 36569; 70491; 71010; 76937; 80048; 80053; 80202; 81001; 82010; 82550; 82948; 83036; 83605; 83735; 85007; 85027; 86403; 87015; 87040; 87070; 87086; 87102; 87116; 87147; 87186; 87205; 87206; 88304; 88305; 93005; 96365; 96367; 96375; J0131; J0690; J1100; J1650; J1815; J2270; J2405; J2543; J2710; J3010; J3370; J3480; J7030; J7050; J7120; Q9967